=== PATIENT | female | born 2000 | race Caucasian/White ===

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

== ENCOUNTER → 2018-01-14 13:06 | Outpatient (CLI) | payer SELFPAY | PROVIDERS: Visit Provider Nurse Practitioner Obstetrics & Gynecology | DX: N92.0 Excessive and frequent menstruation with regular cycle (principal) | CPT/HCPCS: 86316 ==

== ENCOUNTER → 2019-12-28 14:26 | Outpatient (CLI) | payer OTHER, SELFPAY ==
--- NOTE | 2019-12-28 14:34 | XR_ITS ---
PROCEDURE: XR CHEST PORTABLE CLINICAL HISTORY: COVID TEST COMPARISON: CR CXR CHEST(2 VIEWS-NOT PORTABLE) from 12/24/[address] angio chest from 06/24/2017 FINDINGS: The cardiomediastinal silhouette and pulmonary vascularity are within normal limits. The lungs are clear without infiltrates, suspicious nodules, or pleural effusions. No acute bony abnormalities. IMPRESSION: No acute findings. Dictated by: Sharif Pepe MD 12/28/2019 16:42 Sharif Pepe MD in [place] 12/28/2019 16:42
[2019-12-28 15:26] LABS: Basophils % 0.4 % (0.1-2.0); Eosinophils # 0.1 K/mm3 (0.0-0.4); Eosinophils % 0.9 % (0.1-12.0); Hematocrit 41.5 % (37.0-47.0); Hemoglobin 13.5 g/dL (12.2-16.2); Lymphocytes # 1.3 K/mm3 (0.7-4.5); Lymphocytes % 22.3 % (10-50); Mean Corpuscular HGB Conc 32.4 g/dL (31.8-35.4); Mean Corpuscular Volume 95.7 fl (81-99); Monocytes # 0.4 K/mm3 (0.1-1.0); Monocytes % 6.9 % (1.7-9.3); Neutrophils # 4.2 K/mm3 (1.8-7.8); Neutrophils % 69.5 % (37.0-80.0); Platelet Count 184 K/mm3 (142-424); Red Blood Count 4.34 M/mm3 (4.20-5.40); Red Cell Distribution Width 12.4 % (11.5-17.5)
[2019-12-28 16:35] LABS: Alanine Aminotransferase 18 U/L (12-78); Albumin Level 4.3 g/dl (3.5-5.0); Albumin/Globulin Ratio 1.3 (1.1-1.8); Alkaline Phosphatase 70 U/L (38-126); Anion Gap 13.1 mEq/L (5-15); Aspartate Amino Transferase 26 U/L (14-36); Bilirubin,Total 0.3 mg/dl (0.2-1.3); Blood Urea Nitrogen 13 mg/dl (7-17); Carbon Dioxide 23 mmol/L (22.0-30.0); Chloride 106 mmol/L (98-107); Estimated Glomerular Filt Rate 91 ml/min (>60); GFR (African American) 110 ML/MIN (>60); Globulin 3.2 g/dL (1.3-3.2); Glucose 98 mg/dl (74-100); Potassium 4.1 mmoL/L (3.5-5.1); Sodium 138 mmol/L (136-145); Total Protein,Serum 7.5 g/dl (6.3-8.2)
[2019-12-28 16:36] LABS: Coronavirus 19 IgG Antibody Negative (Negative); Coronavirus 19 IgM Antibody Negative (Negative)
[2019-12-28 16:40] LABS: C-Reactive Protein 5.5 mg/L (0-4)
== END ==
PROVIDERS: PCP Internal Medicine Adolescent Medicine; Visit Provider Internal Medicine Adolescent Medicine
DX: Z20.828 Contact with and (suspected) exposure to other viral communicable diseases (principal); U07.1 COVID-19; R05 Cough; M79.10 Myalgia, unspecified site
CPT/HCPCS: 36415; 71045; 80053; 85025; 86140; 86328; U0003

== ENCOUNTER 2020-05-16 10:26 | Emergency (ER) | payer OTHER, SELFPAY ==
[2020-05-16 10:40] VITALS: BP 154/83; PULSE 120; RESP 16; TEMP 36.9; O2SAT 99; BMI 31.2
[2020-05-16 10:51] VITALS: BP 150/79; PULSE 122; RESP 16; TEMP 36.8
--- NOTE | 2020-05-16 10:51 | HMH.EDUTC ---
[facility] [place] Clinical Impression: Right sided abdominal pain Disposition: Home, Self-Care Condition on Discharge: Good Additional Instructions: Go straight to your Family Doctor office we have spoken with them and they are expecting you Return if needed Straight to ER if any life threatening symptoms Further treatment to be given by Family Doctor Referrals: Stephen Hardin MD [Primary Care Provider] - As needed (Go straight to the office after leaving [facility]) Time of Disposition: 10:54 Medical Decision Making - Pietro Inquiry Pt receiving controlled substance: No Pietro was queried for this patient: No Vital Signs: 05/16/20 10:40 05/16/20 10:51 Temperature 98.4 F 98.3 F Temperature Source Oral Pulse Rate 122 H Pulse Rate [Right] 120 H Respiratory Rate 16 16 Blood Pressure 150/79 H Blood Pressure [Right Arm] 154/83 H Blood Pressure Mean [Right Arm] 106 Blood Pressure Source [Right Arm] Automatic Cuff Blood Pressure Position Sitting Blood Pressure Position [Right Arm] Sitting 02 Sat by Pulse Oximetry 99 Oxygen Delivery Method Room Air - Lab Data Lab results reviewed: Yes: I reviewed the patient's lab results. Lab Results 05/16/20 10:43: Urine Color Yellow, Urine Appearance Clear, Urine pH 7.0, Ur Specific [place] 1.025, Urine Protein Negative, Urine Glucose (UA) Negative, Urine Ketones Negative, Urine Blood Trace, Urine Nitrate Negative, Urine Bilirubin Negative, Urine Urobilinogen 0.2, Ur Leukocyte Esterase Trace, Tst Clinic Negative Orders (Tests/Meds): ORDERS Category Date Time Status Urine Culture Stat Micro 05/16/20 11:02 Ordered Medical Decision Narrative: Patient reports having pain in her right side of abdomen that shoots up into her back States that she called her PCP this morning and left a message and they called her back but she missed the call so she came here States that pain in right side has been going on for several days and she has nausea after eating States that she feels like her sweat smells funny like onions States that when pain hits she gets sweaty Patient had appendix removed years ago Discussed with patient about and recommended transfer to ED due to having right sided abdominal pain for further work up and testing and patient states that she would like to see PCP instead of ED transfer if possible. called office and spoke with staff and informed them of patient complaints and they advised to have her come on into the office they would see her there. Discussed with patient and she agreed to go straight to the office and again recommended transfer to ED and patient preferred to go to her PCP instead of being transferred to Ed for further treatment Patient discharged from [facility] and advised to go straight to her PCP [facility] [place] - General Stated complaint: Rt side pain, bad taste/smell Time Seen by Provider: 05/16/20 10:52 Mode of Arrival: Ambulatory Source of Information: Patient Limitations: No Limitations Description of Symptoms (Recalled from Triage Doc. by RN): pt is complain of RLQ pain that radiates into the right side of her back. she has had n/v. pt has been dizzy. pt reports that when she eats everything tastes like rotten onions she also states her sweat smells like rotten onions. abd pain worse with eating. HEENT Symptoms (Recalled from RN notes): Yes (dizziness. syncope yesterday at work.) Resp Symptoms (Recalled from RN notes): No Skin Symptoms (Recalled from RN notes): No MS Symptoms (Recalled from RN notes): No Functional Status (Recalled from RN notes): na - History of Present Illness Provider Complaint: Patient states that she has been having pain in her right side of abdomen that at times shoots pain into her back States that pain is worse at times after she eats States that she feels like at times her food and sweat tastes and smells like rotten onions States that when pain hits it makes her feel sweaty. States that she had appendix remov
[2020-05-16 10:52] LABS: Apearance,Urine Clear (Clear); Blood, Urine Trace (Negative); Color,Urine Yellow (Yellow); Glucose,Urine (UA) Negative (Negative); Ketones,Urine Negative (Negative); Protein,Urine Negative (Negative); Specific Gravity, Urine 1.025 (1.005-1.030)
[2020-05-16 10:53] LABS: Bilirubin,Urine Negative (Negative); UTC Leukocyte Esterase,Urine Trace (Negative); UTC Nitrate,Urine Negative (Negative); UTC Pregnancy Test, Urine Negative (Negative); Urobilinogen,Urine 0.2 EU/dl (0.2)
== END 2020-05-16 10:57 | disposition home or self-care (01) ==
PROVIDERS: Emergency Provider Nurse Practitioner; PCP Internal Medicine Adolescent Medicine
DX: R10.31 Right lower quadrant pain (principal); R11.2 Nausea with vomiting, unspecified; R42 Dizziness and giddiness; F17.210 Nicotine dependence, cigarettes, uncomplicated
CPT/HCPCS: 81003; 81025; 87086; 99202; G0463

== ENCOUNTER → 2020-05-16 11:47 | Outpatient (CLI) | payer OTHER, SELFPAY ==
[2020-05-16 12:27] LABS: Basophils % 0.3 % (0.1-2.0); Eosinophils # 0.2 K/mm3 (0.0-0.4); Eosinophils % 1.5 % (0.1-12.0); Hematocrit 43.1 % (37.0-47.0); Hemoglobin 14.2 g/dL (12.2-16.2); Lymphocytes # 2.4 K/mm3 (0.7-4.5); Lymphocytes % 23.1 % (10-50); Mean Platelet Volume 7.8 fl (7.4-10.4); Monocytes # 0.4 K/mm3 (0.1-1.0); Monocytes % 3.9 % (1.7-9.3); Neutrophils # 7.3 K/mm3 (1.8-7.8); Neutrophils % 71.2 % (37.0-80.0); Platelet Count 222 K/mm3 (142-424); Red Blood Count 4.59 M/mm3 (4.20-5.40); Red Cell Distribution Width 12.6 % (11.5-17.5); White Blood Count 10.3 K/mm3 (4.8-10.8)
[2020-05-16 13:29] LABS: Alanine Aminotransferase 12 U/L (12-78); Albumin Level 4.6 g/dl (3.5-5.0); Albumin/Globulin Ratio 1.3 (1.1-1.8); Alkaline Phosphatase 73 U/L (38-126); Anion Gap 11.2 mEq/L (5-15); Aspartate Amino Transferase 22 U/L (14-36); Bilirubin,Total 0.4 mg/dl (0.2-1.3); Blood Urea Nitrogen 15 mg/dl (7-17); Calcium 9.7 mg/dl (8.4-10.2); Carbon Dioxide 24 mmol/L (22.0-30.0); Chloride 107 mmol/L (98-107); Estimated Glomerular Filt Rate 105 ml/min (>60); GFR (African American) 127 ML/MIN (>60); Globulin 3.5 g/dL (1.3-3.2); Glucose 88 mg/dl (74-100); Lipase 25 U/L (23-300); Potassium 4.2 mmoL/L (3.5-5.1); Sodium 138 mmol/L (136-145); Total Protein,Serum 8.1 g/dl (6.3-8.2)
== END ==
PROVIDERS: Visit Provider Internal Medicine Adolescent Medicine
DX: R10.11 Right upper quadrant pain (principal)
CPT/HCPCS: 36415; 80053; 83690; 85025

== ENCOUNTER → 2020-05-19 08:46 | Outpatient (CLI) | payer OTHER, SELFPAY ==
--- NOTE | 2020-05-19 08:50 | US_ITS ---
PROCEDURE: US ABDOMEN LIMITED CLINICAL INDICATION: RUQ PAIN COMPARISON: No exams were available for comparison FINDINGS: PANCREAS: Unremarkable. No obvious mass or abnormal fluid collection. No ductal dilatation LIVER: No focal liver lesions demonstrated. Homogeneous echogenicity. No intrahepatic biliary ductal dilatation evident. There is appropriate direction of blood flow within a non dilated portal vein RIGHT KIDNEY: Unremarkable. Normal size and echogenicity. No hydronephrosis GALLBLADDER: No gallstones, gallbladder wall thickening, pericholecystic fluid, or biliary dilatation. IMPRESSION: Unremarkable limited abdominal ultrasound as detailed above disc Dictated by: Sharif Pepe MD 05/19/2020 11:11 Sharif Pepe MD in [place] 05/19/2020 11:11
== END ==
PROVIDERS: PCP Internal Medicine Adolescent Medicine; Visit Provider Internal Medicine Adolescent Medicine
DX: R10.11 Right upper quadrant pain (principal)
CPT/HCPCS: 76705

== ENCOUNTER 2020-06-28 13:18 | Emergency (ER) | payer OTHER, SELFPAY ==
[2020-06-28 13:20] VITALS: BP 117/78; PULSE 89; RESP 18; TEMP 37; O2SAT 97; BMI 33.2
--- NOTE | 2020-06-28 13:59 | HMH.EDUTC ---
[facility] [place]ression: Swelling of left hand, Sting Cellulitis Qualifiers: Site of cellulitis: extremity Site of cellulitis of extremity: upper extremity Laterality: left Qualified Code(s): L03.114 - Cellulitis of left upper limb Disposition: Home, Self-Care Condition on Discharge: Good Instructions: Cellulitis, Insect Bites and Stings Additional Instructions: Avoid contact with the offending substance. Don't put the topical steroids (triamcinolone) on your face or your groin. Follow up with your regular doctor. GO TO THE ER FOR ANY WORSENING SYMPTOMS OR CONCERNS Prescriptions: Sulfamethoxazole/Trimethoprim [Bactrim DS tablet] 1 each PO BID 7 Days #14 tab Transmission Status: Received by [facility] methylPREDNISolone [Medrol] 4 mg PO DIRECTED 6 Days #21 tab.[email or web address] Transmission Status: Received by [facility] Triamcinolone Acetonide 1 applicatio TP TIDP PRN 7 Days #1 tube PRN Reason: Itching Transmission Status: Received by [facility] Referrals: Stephen Hardin MD [Primary Care Provider] - Forms: Work/School Release Time of Disposition: 14:04 Medical Decision Making - Medical Records Medical records reviewed: No: I reviewed the patient's medical records. - Pietro Inquiry Pt receiving controlled substance: No Vital Signs: 06/28/20 13:20 06/28/20 14:08 Temperature 98.6 F 98.6 F Temperature Source Oral Pulse Rate 89 Pulse Rate [Right Brachial] 89 Respiratory Rate 18 18 Blood Pressure 117/78 Blood Pressure [Right Arm] 117/78 Blood Pressure Mean [Right Arm] 91 Blood Pressure Source [Right Arm] Automatic Cuff Blood Pressure Position [Right Arm] Sitting 02 Sat by Pulse Oximetry 97 Oxygen Delivery Method Room Air [facility] [place] - General Stated complaint: left hand swelling Time Seen by Provider: 06/28/20 13:59 Mode of Arrival: Ambulatory Source of Information: Patient Limitations: No Limitations Description of Symptoms (Recalled from Triage Doc. by RN): PATIENT C/O SWELLING, REDNESS, AND BURNING TO LEFT HAND. SHE STATES IT STARTED AFTER SHE ATE LUNCH AND WASHED HER HANDS. ALSO REPORTS NUMBNESS TO AREA AFTER SHE RUBBED IT WITH ALCOHOL HEENT Symptoms (Recalled from RN notes): No Resp Symptoms (Recalled from RN notes): No Skin Symptoms (Recalled from RN notes): Yes MS Symptoms (Recalled from RN notes): No Functional Status (Recalled from RN notes): WNL - History of Present Illness Provider Complaint: She states that for the past 2 hours, her left hand had been swollen and she has had a red area on her top of her left hand. She denies any known injury. She was at work when she first noticed the swelling. - Related Data Home Medications Medication Instructions Recorded Confirmed albuterol sulfate 90 mcg/actuation INHALATION 01/11/20 04/12/20 aerosol inhaler loratadine 10 mg tablet 10 mg PO tab 01/11/20 04/12/20 Previous Rx's Medication Instructions Recorded escitalopram oxalate 10 mg tablet 10 mg PO DAILY #30 tab 09/13/19 medroxyprogesterone 150 mg/mL 150 mg IM [id number] #1 ml 10/11/19 intramuscular suspension ondansetron 4 mg disintegrating 4 mg PO Q8H PRN #30 tab 04/12/20 tablet Sulfamethoxazole/Trimethoprim 1 each PO BID 7 Days #14 tab 06/28/20 [Bactrim DS tablet] Triamcinolone Acetonide 1 applicatio TP TIDP PRN 7 Days #1 06/28/20 tube methylPREDNISolone [Medrol] 4 mg PO DIRECTED 6 Days #21 06/28/20 tab.[email or web address] Allergies Allergy/AdvReac Type Severity Reaction Status Date / Time No Known Allergies Allergy Verified 05/16/20 10:30 - Worker's Comp Is this a Worker's Comp case?: No H History - Hepatitis A Screen Drug use history?: No High risk sexual behaviors?: No History of sexually transmitted infection?: No Currently employed?: No Childcare worker?: No Do you have indoor plumbing?: Yes Do you have electricity?: Yes Attestation statement:: This patient has been screened for Hepatitis
[2020-06-28 14:08] VITALS: BP 117/78; PULSE 89; RESP 18; TEMP 37; O2SAT 97
== END 2020-06-28 14:25 | disposition home or self-care (01) ==
PROVIDERS: Emergency Provider Nurse Practitioner Family; PCP Internal Medicine Adolescent Medicine
DX: L03.114 Cellulitis of left upper limb (principal); R01.1 Cardiac murmur, unspecified; F33.1 Major depressive disorder, recurrent, moderate; F17.210 Nicotine dependence, cigarettes, uncomplicated; Z79.899 Other long term (current) drug therapy
CPT/HCPCS: 99202; G0463

== ENCOUNTER → 2020-08-16 13:05 | Outpatient (CLI) | payer OTHER, SELFPAY ==
[2020-08-16 13:07] LABS: Microscopic, Urine URINE MICROSCOPIC (MICROSCOPIC)
[2020-08-16 13:37] LABS: Basophils % 0.2 % (0.1-2.0); Eosinophils # 0.1 K/mm3 (0.0-0.4); Eosinophils % 1.4 % (0.1-12.0); Hematocrit 38.9 % (37.0-47.0); Hemoglobin 13.1 g/dL (12.2-16.2); Lymphocytes # 2.6 K/mm3 (0.7-4.5); Lymphocytes % 25.9 % (10-50); Mean Corpuscular HGB Conc 33.7 g/dL (31.8-35.4); Mean Corpuscular Hemoglobin 31.5 pg (27.0-31.2); Mean Corpuscular Volume 93.4 fl (81-99); Mean Platelet Volume 8.3 fl (7.4-10.4); Monocytes # 0.4 K/mm3 (0.1-1.0); Monocytes % 4.3 % (1.7-9.3); Neutrophils # 6.9 K/mm3 (1.8-7.8); Neutrophils % 68.1 % (37.0-80.0); Platelet Count 255 K/mm3 (142-424); Red Blood Count 4.17 M/mm3 (4.20-5.40); Red Cell Distribution Width 12.4 % (11.5-17.5); White Blood Count 10.1 K/mm3 (4.8-10.8)
[2020-08-16 13:39] LABS: Appearance,Urine CLEAR (Clear); Bilirubin,Urine Negative (Negative); Blood, Urine 3+ (Negative); Color,Urine YELLOW (Yellow); Glucose,Urine (UA) Negative (Negative); Ketones,Urine Negative (Negative); Leukocyte Esterase,Urine Negative (Negative); Nitrate,Urine Negative (Negative); Protein,Urine Negative (Negative); Specific Gravity, Urine >= 1.030 (1.005-1.030); Urobilinogen,Urine 0.2 EU/dl (0.2)
[2020-08-16 13:49] LABS: Bacteria,Urine 3+ /lpf; Mucus,Urine 3+ /lpf
[2020-08-16 14:21] LABS: Alanine Aminotransferase 16 U/L (12-78); Albumin Level 4.5 g/dl (3.5-5.0); Albumin/Globulin Ratio 1.5 (1.1-1.8); Alkaline Phosphatase 84 U/L (38-126); Anion Gap 12.4 mEq/L (5-15); Aspartate Amino Transferase 25 U/L (14-36); Bilirubin,Total 0.4 mg/dl (0.2-1.3); Blood Urea Nitrogen 16 mg/dl (7-17); Calcium 9.3 mg/dl (8.4-10.2); Carbon Dioxide 24 mmol/L (22.0-30.0); Chloride 107 mmol/L (98-107); Estimated Glomerular Filt Rate 105 ml/min (>60); GFR (African American) 127 ML/MIN (>60); Globulin 3.1 g/dL (1.3-3.2); Glucose 80 mg/dl (74-100); Potassium 4.4 mmoL/L (3.5-5.1); Sodium 139 mmol/L (136-145); Total Protein,Serum 7.6 g/dl (6.3-8.2)
[2020-08-16 14:23] LABS: HCG Qualitative, Serum Negative (Negative)
== END ==
PROVIDERS: Visit Provider Internal Medicine Adolescent Medicine
DX: N92.1 Excessive and frequent menstruation with irregular cycle (principal); K92.1 Melena; R31.9 Hematuria, unspecified
CPT/HCPCS: 36415; 80053; 81001; 84703; 85025; 87086; 87088; 87186

== ENCOUNTER → 2020-10-16 16:42 | Outpatient (CLI) | payer OTHER, SELFPAY ==
[2020-10-16 16:43] LABS: Microscopic, Urine URINE MICROSCOPIC (MICROSCOPIC)
[2020-10-16 17:50] LABS: Appearance,Urine CLOUDY (Clear); Bilirubin,Urine Negative (Negative); Blood, Urine TRACE-I (Negative); Color,Urine YELLOW (Yellow); Glucose,Urine (UA) Negative (Negative); Ketones,Urine Negative (Negative); Leukocyte Esterase,Urine Negative (Negative); Nitrate,Urine Negative (Negative); Protein,Urine Negative (Negative); Specific Gravity, Urine >= 1.030 (1.005-1.030); Urobilinogen,Urine 0.2 EU/dl (0.2)
[2020-10-16 18:35] LABS: Squamous Epithelial Cell,Urine Occasional #/hpf (0-5); WBC,Urine Occasional #/hpf (0-3)
== END ==
PROVIDERS: Visit Provider Internal Medicine Adolescent Medicine
DX: R10.30 Lower abdominal pain, unspecified (principal)
CPT/HCPCS: 81001; 87086; 87088; 87186

== ENCOUNTER 2020-11-14 12:55 | Emergency (ER) | payer OTHER, SELFPAY ==
[2020-11-14 12:59] VITALS: BP 129/77; PULSE 77; RESP 16; TEMP 36.8; O2SAT 100; BMI 32.3
--- NOTE | 2020-11-14 15:04 | ED_ITS ---
[facility] – [place] Disposition Referrals: Stephen Hardin MD [Primary Care Provider] - Medical Decision Making Vital Signs: 11/14/20 12:59 Temperature 98.2 F Temperature Source Oral Pulse Rate [Right] 77 Respiratory Rate 16 Blood Pressure [Right Arm] 129/77 Blood Pressure Mean [Right Arm] 94 Blood Pressure Source [Right Arm] Automatic Cuff Blood Pressure Position [Right Arm] Sitting 02 Sat by Pulse Oximetry 100 Oxygen Delivery Method Room Air [facility] [place] HPI - General Stated complaint: right arm pain, down to fingers Mode of Arrival: Ambulatory Source of Information: Patient Limitations: No Limitations Description of Symptoms (Recalled from Triage Doc. by RN): PT ADVISES SHE WORKS IN A [employer] AND DOES REPEATIVE MOTIONS WITH HER HAND. ON FRIDAY MORNING SHE WOKE UP WITH PAIN IN THE RIGHT HSOULDER DOWN TO HER FINGERS. ADVISES THERE IS SOME TINGLING AND NUMBNESS IN HER HAND AND THAT WHEN SHE MOVES HER ELBOW SHE FEELS LIKE THERE IS ELECTRICITY GOING DOWN HER ARM. - Related Data Home Medications Medication Instructions Recorded Confirmed albuterol sulfate 90 mcg/actuation INHALATION 01/11/20 04/12/20 aerosol inhaler loratadine 10 mg tablet 10 mg PO tab 01/11/20 04/12/20 Previous Rx's Medication Instructions Recorded escitalopram oxalate 10 mg tablet 10 mg PO DAILY #30 tab 09/13/19 medroxyprogesterone 150 mg/mL 150 mg IM [id number] #1 ml 10/11/19 intramuscular suspension ondansetron 4 mg disintegrating 4 mg PO Q8H PRN #30 tab 04/12/20 tablet Sulfamethoxazole/Trimethoprim 1 each PO BID 7 Days #14 tab 06/28/20 [Bactrim DS tablet] Triamcinolone Acetonide 1 applicatio TP TIDP PRN 7 Days #1 06/28/20 tube methylPREDNISolone [Medrol] 4 mg PO DIRECTED 6 Days #21 06/28/20 tab.ds.pk Allergies Allergy/AdvReac Type Severity Reaction Status Date / Time No Known Allergies Allergy Verified 05/16/20 10:30 [facility] History - Hepatitis A Screen Attestation statement:: This patient has been screened for Hepatitis A risk factors. Medical History: Reports:: Heart Murmur Denies:: Cancer, Diabetes Mellitus Type 1, Diabetes Mellitus Type 2, Hypertension, Internal Pacemaker, MRSA, Seizures Other Medical History: Reports: Other. Denies: Blood Transfusion Reaction Other Surgeries: Yes: No Previous Surgery, Appendectomy, Other. 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
[2020-11-14 15:54] VITALS: BP 00/00; PULSE 0; RESP 0; TEMP -17.7; TEMP 0
== END 2020-11-14 15:56 | disposition left against medical advice (07) ==
LOC: UTC 13:01
PROVIDERS: Emergency Provider Nurse Practitioner; PCP Internal Medicine Adolescent Medicine
DX: Z53.21 Procedure and treatment not carried out due to patient leaving prior to being seen by health care provider (principal)

== ENCOUNTER → 2020-11-28 11:41 | Outpatient (CLI) | payer OTHER, SELFPAY ==
[2020-11-28 12:24] LABS: Basophils % 0.4 % (0.1-2.0); Eosinophils % 0.5 % (0.1-12.0); Hematocrit 41.9 % (37.0-47.0); Hemoglobin 13.8 g/dL (12.2-16.2); Lymphocytes # 1.3 K/mm3 (0.7-4.5); Lymphocytes % 16.5 % (10-50); Mean Corpuscular HGB Conc 32.9 g/dL (31.8-35.4); Mean Corpuscular Hemoglobin 31.6 pg (27.0-31.2); Mean Corpuscular Volume 96.1 fl (81-99); Mean Platelet Volume 7.9 fl (7.4-10.4); Monocytes # 0.4 K/mm3 (0.1-1.0); Monocytes % 4.8 % (1.7-9.3); Neutrophils # 6.2 K/mm3 (1.8-7.8); Neutrophils % 77.9 % (37.0-80.0); Platelet Count 211 K/mm3 (142-424); Red Blood Count 4.36 M/mm3 (4.20-5.40); Red Cell Distribution Width 12.1 % (11.5-17.5)
[2020-11-28 13:32] LABS: Chloride 105 mmol/L (98-107); Potassium 4.3 mmoL/L (3.5-5.1); Sodium 139 mmol/L (136-145)
[2020-11-28 13:34] LABS: Alanine Aminotransferase 14 U/L (12-78); Alkaline Phosphatase 96 U/L (38-126); Aspartate Amino Transferase 24 U/L (14-36); Bilirubin,Total 0.2 mg/dl (0.2-1.3); Blood Urea Nitrogen 13 mg/dl (7-17); Estimated Glomerular Filt Rate 105 ml/min (>60); GFR (African American) 127 ML/MIN (>60)
[2020-11-28 13:35] LABS: Albumin Level 4.4 g/dl (3.5-5.0); Albumin/Globulin Ratio 1.3 (1.1-1.8); Anion Gap 15.3 mEq/L (5-15); Calcium 9.4 mg/dl (8.4-10.2); Carbon Dioxide 23 mmol/L (22.0-30.0); Globulin 3.3 g/dL (1.3-3.2); Glucose 92 mg/dl (74-100); Total Protein,Serum 7.7 g/dl (6.3-8.2)
[2020-11-28 13:57] LABS: HCG,Quantitative < 2 mIU/ml (0-5.42)
== END ==
PROVIDERS: Visit Provider Internal Medicine Adolescent Medicine
DX: N93.9 Abnormal uterine and vaginal bleeding, unspecified (principal)
CPT/HCPCS: 36415; 80053; 84702; 85025

== ENCOUNTER → 2020-11-29 19:49 | Outpatient (CLI) | payer OTHER, SELFPAY | PROVIDERS: Visit Provider Nurse Practitioner Family | DX: R50.9 Fever, unspecified (principal) | CPT/HCPCS: 87086 ==

== ENCOUNTER → 2021-05-29 07:03 | Outpatient (CLI) | payer OTHER, SELFPAY ==
[2021-05-29 07:08] LABS: MANUAL DIFFERENTIAL MANUAL DIFFERENTIAL (MANUAL DIFF)
[2021-05-29 07:35] LABS: Basophils # 0.1 K/mm3 (0-0.2); Basophils % 0.7 % (0.1-2.0); Eosinophils # 0.1 K/mm3 (0.0-0.4); Eosinophils % 1.6 % (0.1-12.0); Hematocrit 42.3 % (37.0-47.0); Hemoglobin 13.6 g/dL (12.2-16.2); Lymphocytes # 1.8 K/mm3 (0.7-4.5); Lymphocytes % 21.8 % (10-50); Mean Corpuscular HGB Conc 32.1 g/dL (31.8-35.4); Mean Corpuscular Hemoglobin 31.6 pg (27.0-31.2); Mean Corpuscular Volume 98.3 fl (81-99); Mean Platelet Volume 8.6 fl (7.4-10.4); Monocytes # 0.3 K/mm3 (0.1-1.0); Neutrophils % 71.9 % (37.0-80.0); Platelet Count 213 K/mm3 (142-424); Red Cell Distribution Width 13.4 % (11.5-17.5); White Blood Count 8.3 K/mm3 (4.8-10.8)
[2021-05-29 08:30] LABS: Anion Gap 10.7 mEq/L (5-15); Blood Urea Nitrogen 18 mg/dl (7-17); Calcium 8.7 mg/dl (8.4-10.2); Carbon Dioxide 24 mmol/L (22.0-30.0); Chloride 108 mmol/L (98-107); Estimated Glomerular Filt Rate 69 ml/min (>60); GFR (African American) 83 ML/MIN (>60); Glucose 80 mg/dl (74-100); Potassium 4.7 mmoL/L (3.5-5.1); Sodium 138 mmol/L (136-145)
[2021-05-29 08:39] LABS: HCG Qualitative, Serum Negative (Negative)
[2021-05-29 14:22] LABS: Eosinophils % 2 % (0-3); Lymphocytes % 23 % (10-50); Monocytes % 4 % (2-9); Neutrophils % 71 % (42-76); Total Cells Counted 100
[2021-05-29 14:23] LABS: Platelet Estimate Normal
== END ==
PROVIDERS: Visit Provider Nurse Practitioner Obstetrics & Gynecology
DX: Z01.818 Encounter for other preprocedural examination (principal); Z11.52 Encounter for screening for COVID-19; Z30.09 Encounter for other general counseling and advice on contraception
CPT/HCPCS: 36415; 80048; 84703; 85007; 85014; 85018; 85048; 85049; C9803; U0003; U0005

== ENCOUNTER 2021-05-31 06:00 | Day surgery (SDC) | payer OTHER, SELFPAY ==
[2021-05-29 12:40] VITALS: BMI 30.7
[2021-05-31] VITALS (11 sets, daily range): BP systolic 113–140; BP diastolic 58–90; PULSE 72–100; RESP 14–18; TEMP 36.4–36.9; O2SAT 98–100
--- NOTE | 2021-05-31 07:22 | HMH.ANESCL ---
[facility] Anesthesia Checklist - Patient Identification Patient Identification: Arm Band - Structural Data Admitted From: Home Planned Operative Procedure/s: Harpreet. salpingectomy Consent for Planned Operative Procedure(s) Verified: Yes - NPO Status Verified Time NPO: 00:00 - Additional verifications Anesthesia Reactions: No Hx Blood Transfusions: No Blood Transfusion Reaction: No - Airway Assessment C-Spine Mobility Assessed: Yes TMJ Mobility Assessed: Yes Dentition: Good Dentition - Neurological Assessment Level of Consciousness: Awake Hx Seizures: No Numbness or tingling in extremities: No - Anesthesia Plan Anesthesia Risk discussed: Yes Anesthesia Plan: Verified ASA Class: II Anesthesia Type: General [facility] History I have reviewed the patient's past medical history: Yes Medical History: Reports:: Heart Murmur Denies:: Cancer, Diabetes Mellitus Type 1, Diabetes Mellitus Type 2, Hypertension, Internal Pacemaker, MRSA, Seizures *Have you ever received a pneumonia vaccine?: No *Have you received a flu vaccine this season?: No Other Medical History: Reports: Other. Denies: Blood Transfusion Reaction Anesthesia experience/problems:: None Other Surgeries: Yes: No Previous Surgery, Appendectomy, Other. 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
--- NOTE | 2021-05-31 08:15 | P.OP_ITS ---
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 She expressed desire for sterilization. The risks and benefits as well as the irreversibility of sterilization were discussed with the patient prior to surgery. Operative findings:: She had a normal-appearing anteverted uterus. The left tube and ovary were absent. The right tube was followed to its fimbriated end and appeared normal. There were a couple of small adhesions in the deep pelvis. There were some adhesions from the right tube to the right ovary. There were just filmy adhesions. The upper abdomen appeared normal except that there were filmy adhesions of the liver to the anterior abdominal wall. She had had previous PID. Operative note:: She was taken to the operating room where general anesthesia was found be adequate. She was prepped and draped in normal sterile fashion in the semilithotomy position. A weighted speculum was placed in the vagina and the anterior lip of the cervix was grasped with a tenaculum. I then inserted a Deepali uterine manipulator into the cervical os. The balloon was then insufflated. I changed gloves and injected 10 cc of 0.5% ropivacaine around her umbilicus and made a small incision within the umbilicus. I inserted a Veress needle into the abdominal cavity. The peritoneal cavity was then insufflated with carbon dioxide gas to a pressure of 20 mmHg. I then inserted a 5 millimeter trocar under direct vision. I injected through and through the pubic hairline, made a small incision here and inserted an 8 mm trocar under direct vision. I identified the inferior epigastric artery on the left side, went lateral to these and injected through and through. I then placed a 5 mm trocar here under direct vision. The pelvis and upper abdomen were then inspected and the findings were as previously dictated. I grasped the right tube at the cornua and using harmonic scalpel on coagulation mode I cut through the tube. I then grasped the distal tube and using harmonic scalpel cut along the mesosalpinx. The tube was removed through 8 mm trocar site. I then injected 30 cc of 0.5% ropivacaine into the pelvis. After assuring hemostasis the gas was let out of the abdomen and hemostasis was once again assured. The abdomen was then reinsufflated. The secondary trochars were removed under direct vision. The gas was let out her abdomen. The primary trocar was then removed. The 8 mm trocar site was closed deeply with 2-0 Vicryl suture followed by subcuticular 4-0 Monocryl suture. The 5 mm trocar sites were closed with subcuticular 4-0 Monocryl. Sterile dressings were applied. The patient tolerated the procedure well and was taken to the recovery room in excellent condition. All sponge instrument and needle counts were correct. The estimated blood loss was less than 25 cc. Condition: stable Disposition: PACU Specimens:: Right Fallopian tube Complications:: None
--- NOTE | 2021-05-31 08:16 | P.PN_ITS ---
[facility] Anesthesia Record Part I Intake, IV Amount: 500 Estimated blood loss (mL): 25 Urine output (mL): 0 Blood Pressure: 140/87 SaO2: 100 Pulse Rate: 100 Respiratory Rate: 18 Temperature: 97.7 F Patient is:: Drowsy Stable to PACU at:: 08:14
--- NOTE | 2021-05-31 08:46 | SUR.PHASEI ---
0843- detailed report called to markell gerardo in post op at this time. 0945- pt taken to post op in stable condition by markell gerardo.
--- NOTE | 2021-05-31 13:27 | P.PN_ITS ---
[facility] Anesthesia Record Part II Discharge Time: 08:44 Destination: Surgical Day Care (OP Surgery) PACU nurse assessment reviewed?: Yes Patient Condition:: Good Anesthesia Complications:: None Swallowing reflex intact?: Yes Cyanosis?: No Blood Pressure: 136/87 Pulse Rate: 72 Temperature: 97.6 F Mental Status: Alert & Oriented Pain level:: 2 Nausea and/or vomitting:: None Intake, IV Amount: 0
== END 2021-05-31 09:30 | disposition home or self-care (01) ==
LOC: OR 06:01
PROVIDERS: PCP Internal Medicine Adolescent Medicine; Visit Provider Nurse Practitioner Obstetrics & Gynecology
PROC: (CPT 58661; principal; 2021-05-31 07:30)
DX: Z30.2 Encounter for sterilization (principal); K66.0 Peritoneal adhesions (postprocedural) (postinfection); R01.1 Cardiac murmur, unspecified; Z72.0 Tobacco use
CPT/HCPCS: 58661; 96374; J2405

== ENCOUNTER 2021-09-08 09:29 | Emergency (ER) | payer OTHER, SELFPAY ==
[2021-09-08 10:05] VITALS: BP 118/77; PULSE 83; RESP 18; TEMP 36.6; O2SAT 98; BMI 35.1
--- NOTE | 2021-09-08 10:28 | HMH.EDUTC ---
[facility] [place] Dis[place] Clinical Impression: Otitis media Qualifiers: Otitis media type: suppurative Chronicity: acute Laterality: right Recurrence: non-recurrent Spontaneous tympanic membrane rupture: without spontaneous rupture Qualified Code(s): H66.001 - Acute suppurative otitis media without spontaneous rupture of ear drum, right ear Disposition: Home, Self-Care Condition on Discharge: Good Instructions: Middle Ear Infection Additional Instructions: Start antibiotic as soon as possible and be sure to take as ordered for full length of time even though he should start feeling better in 24-48 hours. Tylenol or Motrin as needed for pain or fever Encourage fluids, water, Gatorade, Powerade, Pedialyte if /toddler/child Warm compresses often helps when placed over ear Return immediately for new or worsening symptoms no noticeable improvement in 48-72 hours and in 10-14 days to ensure the ears are return to baseline. Follow-up with primary care Prescriptions: cephALEXin [Cephalexin 500mg Tab] 500 mg PO BID 7 Days #14 tab Prescription Printed Referrals: Stephen Hardin MD [Primary Care Provider] - Time of Disposition: 10:45 Medical Decision Making - Pietro Inquiry Pt receiving controlled substance: No Vital Signs: 09/08/21 10:05 Temperature 97.8 F Temperature Source Oral Pulse Rate [Left Brachial] 83 Respiratory Rate 18 Blood Pressure [Left Arm] 118/77 Blood Pressure Mean [Left Arm] 90 Blood Pressure Source [Left Arm] Automatic Cuff Blood Pressure Position [Left Arm] Sitting 02 Sat by Pulse Oximetry 98 Oxygen Delivery Method Room Air Orders (Tests/Meds): ORDERS Category Date Time Status Upper Respiratory Panel, PCR Stat Lab 09/08/21 10:22 Ordered [facility] [place] HPI - General Chief complaint: Urgent [facility] Stated complaint: ear pain,cough,abd pain Time Seen by Provider: 09/08/21 10:30 Mode of Arrival: Ambulatory Source of Information: Patient Limitations: No Limitations Description of Symptoms (Recalled from Triage Doc. by RN): PATIENT C/O EAR PAIN, BELLY ACHE, AND RED/WATERY EYES SINCE FRIDAY HEENT Symptoms (Recalled from RN notes): Yes Resp Symptoms (Recalled from RN notes): No Skin Symptoms (Recalled from RN notes): No MS Symptoms (Recalled from RN notes): No Functional Status (Recalled from RN notes): WNL - History of Present Illness Provider Complaint: 21 yr old female presents for nasal congestion, mary kay ear pain, scratchy throat and abd cramping since thurs - Related Data Previous Rx's Medication Instructions Recorded Oxycodone HCl/Acetaminophen 1 tab PO Q4-6H PRN #12 tab 05/31/21 [Percocet 5/325mg tablet] cephALEXin [Cephalexin 500mg Tab] 500 mg PO BID 7 Days #14 tab 09/08/21 Allergies Allergy/AdvReac Type Severity Reaction Status Date / Time No Known Allergies Allergy Verified 06/14/21 09:26 - Worker's Comp Is this a Worker's Comp case?: No [facility] History - Hepatitis A Screen Attestation statement:: This patient has been screened for Hepatitis A risk factors. I have reviewed the patient's past medical history: Yes Medical History: Reports:: Heart Murmur Denies:: Cancer, Diabetes Mellitus Type 1, Diabetes Mellitus Type 2, Hypertension, Internal Pacemaker, MRSA, Seizures Other Medical History: Reports: Other. Denies: Blood Transfusion Reaction Other Surgeries: Yes: No Previous Surgery, Appendectomy, Other. 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
[2021-09-08 10:42] LABS: Adenovirus,PCR Not Detected (NotDetected); Bordetella Pertussis Not Detected (NotDetected); Chlamydophila Pneumoniae, PCR Not Detected (NotDetected); Coronavirus 19, PCR Not Detected (NotDetected); Coronavirus 229E Not Detected (NotDetected); Coronavirus NL63 Not Detected (NotDetected); Coronavirus OC43 Not Detected (NotDetected); Coronovirus HKU1,PCR Not Detected (NotDetected); Human Metapneumovirus Not Detected (NotDetected); Influenza A, PCR Not Detected (NotDetected); Influenza AH1, 2009 Not Detected (NotDetected); Influenza AH1, PCR Not Detected (NotDetected); Influenza AH3,PCR Not Detected (NotDetected); Influenza B, PCR Not Detected (NotDetected); Mycoplasma Pneumoniae, PCR Not Detected (NotDetected); Parainfluenza 1, PCR Not Detected (NotDetected); Parainfluenza 2, PCR Not Detected (NotDetected); Parainfluenza 3, PCR Not Detected (NotDetected); Parainfluenza 4, PCR Not Detected (NotDetected); Respiratory Syncytial Virus Not Detected (NotDetected); Rhinovirus/Enterovirus Not Detected (NotDetected)
[2021-09-08 10:54] VITALS: BP 118/77; PULSE 83; RESP 18; TEMP 36.6; O2SAT 98
== END 2021-09-08 10:58 | disposition home or self-care (01) ==
PROVIDERS: Emergency Provider Nurse Practitioner Family; PCP Internal Medicine Adolescent Medicine
DX: H66.001 Acute suppurative otitis media without spontaneous rupture of ear drum, right ear (principal); R05.9 Cough, unspecified; R10.9 Unspecified abdominal pain; F17.210 Nicotine dependence, cigarettes, uncomplicated
CPT/HCPCS: 87581; 87632; 87798; 99212; C9803; G0463; U0003; U0005

== ENCOUNTER 2022-05-30 11:44 | Emergency (ER) | payer OTHER, SELFPAY ==
[2022-05-30] VITALS (7 sets, daily range): BP systolic 105–125; BP diastolic 60–78; PULSE 84–105; RESP 17; TEMP 36.8–37.1; O2SAT 98–100; BMI 29.0
--- NOTE | 2022-05-30 11:50 | HMH.EDGENADL ---
Discharge Plan Disposition Patient Disposition: Home, Self-Care Prescriptions Prescriptions: New hydrocodone-acetaminophen 5-325 mg tablet 1 tab PO Q6H PRN (Reason: pain) 3 Days Qty: 12 0RF ondansetron 4 mg tablet,disintegrating 4 mg PO Q6H PRN (Reason: nausea and vomiting) 5 Days Qty: 20 0RF No Action oxycodone-acetaminophen 1 EACH tablet 1 tab PO Q4-6H PRN (Reason: Severe Pain) Qty: 12 0RF cephalexin 500 MG tablet 500 mg PO BID 7 Days Qty: 14 0RF Referrals Follow up/Referrals: Stephen Hardin MD [Primary Care Provider] - See instructions Activity Restrictions/Add. Instructions Additional Instructions/Restrictions: Your imaging revealed a 3 cm cystic structure most likely ovarian cyst surrounded by free fluid consistent with most likely hemorrhagic ovarian cyst. There is remote possibility this is infectious please keep an eye out for fever or other symptoms. Otherwise follow-up with Dr. Dowling within the next few days return to the emergency department any significant worsening of her symptoms. Clinical Impressions Clinical Impression: Hemorrhagic cyst of ovary Instructions Patient Instructions: DI for Acute Abdominal Pain Discharge ED Provider: Norma Nunez General Adult HPI General Chief complaint: Abdominal Pain Stated complaint: Abd pain radiating to buttocks, leg numbness Time Seen by Provider: 05/30/22 11:50 History of Present Illness HPI narrative: Patient is a 22-year-old female presenting with abdominal pain. She states that she is having pain primarily located in the lower aspect of her abdomen on both sides. She states she has a history of a salpingectomy bilaterally and oophorectomy on the left secondary to a large cyst and superimposed infection. She is also had an appendectomy. Still has her gallbladder. Denies any constipation or diarrhea. Denies any vaginal bleeding other than some slight spotting but she has been regular with her periods for the last several months. Denies any vaginal discharge. Denies any dysuria frequency urgency. She does state when she is trying to urinate she has pain in her rectum but currently no pressure sensation to have a bowel movement. States she had a normal soft bowel movement yesterday and she has been having a bowel movement every few days for a long time and she does not feel constipated. Denies any fevers denies a history of any STDs. She did states she had transiently some lower extremity paresthesias that has since resolved. Related Data Previous Rx's Medication Instructions Recorded oxycodone-acetaminophen 5 mg-325 1 tab PO Q4-6H PRN Severe Pain #12 05/31/21 mg tablet tabs cephalexin 500 mg tablet 500 mg PO BID 7 days #14 tabs 09/08/21 hydrocodone 5 mg-acetaminophen 325 1 tab PO Q6H PRN pain 3 days #12 05/30/22 mg tablet tabs ondansetron 4 mg disintegrating 4 mg PO Q6H PRN nausea and 05/30/22 tablet vomiting 5 days #20 tabs Allergies Allergy/AdvReac Type Severity Reaction Status Date / Time No Known Allergies Allergy Verified 06/14/21 09:26 [facility] Disclaimer: The information contained in this section may have been updated after the patient was seen, as this information can be updated by other users. Social History Smoking Status: Never smoker second hand exposure: Yes alcohol intake: never counseling provided: none substance use type: denies use current occupational status: employed Travel in the last 8 weeks: None household members: family housing: house current occupation: [employer] current occupational exposures/hazards: No caffeine: Yes ROS Obtained: Yes All systems reviewed & no additional complaints except as documented Physical Exam General General appearance: alert Respiratory Respiratory exam: Present normal lung sounds bilaterally; Absent respiratory distress Cardiovascular Cardiovascular exam: Present tachycardia Abdominal Exam Abdominal exam: Present o
--- NOTE | 2022-05-30 12:03 | CT_ITS ---
PROCEDURE INFORMATION: Exam: CT Abdomen And Pelvis With Contrast Exam date and time: 05/30/2022 12:24 PM Age: 22 years old Clinical indication: Abdominal pain; Localized; Left lower quadrant (llq); Prior surgery; Surgery date: 6+ months; Patient HX: Diffuse llq abd pain and tenderness; Additional info: Diffuse abdominal pain and tenderness TECHNIQUE: Imaging protocol: Computed tomography of the abdomen and pelvis with contrast. Radiation optimization: All CT scans at this facility use at least one of these dose optimization techniques: automated exposure control; mA and/or kV adjustment per patient size (includes targeted exams where dose is matched to clinical indication); or iterative reconstruction. Contrast material: ISOVUE; Contrast volume: 75 ml; Contrast route: IV; REPORTING DATA: Count of CT and Cardiac NM exams in prior 12 months: This patient has received 0 known CTs and 0 known cardiac nuclear medicine studies in the 12 months prior to the current study. COMPARISON: ABDPELW CT abdomen pelvis w con 06/24/2017 5:15 PM FINDINGS: Lungs: Trace left basilar airspace disease. Liver: Fatty infiltration of the liver. Gallbladder and bile ducts: Unremarkable gallbladder. Pancreas: No pancreatic mass or ductal dilatation. Spleen: Enlarged spleen measuring 13.7 cm in length. Adrenal glands: Unremarkable adrenals. Kidneys and ureters: Normal renal morphology. No hydronephrosis. Stomach and bowel: Prominent stool. Diverticula, without pericolonic inflammation. Appendix: Status post appendectomy. Intraperitoneal space: Infiltration of pelvic fat with high attenuation free fluid, indicative of proteinaceous and/or hemorrhagic content. Vasculature: Normal caliber of the abdominal aorta. Lymph nodes: Subcentimeter lymph nodes. Urinary bladder: Nondistended bladder with mild wall thickening. Reproductive: Loss of normal fascial planes in the adnexa with multifocal right-sided cystic change, including a complex 3.8 cm cyst. Bones/joints: Transitional vertebra at the lumbosacral junction. Mild scoliosis. Marginal osteophytes and Schmorl's nodes. Soft tissues: Small fat containing umbilical hernia. IMPRESSION: 1. Loss of normal fascial planes in the adnexa with multifocal right-sided cystic change, including a complex 3.8 cm cyst. 2. Infiltration of pelvic fat with high attenuation free fluid, indicative of proteinaceous and/or hemorrhagic content. 3. Additional findings as described above. THIS REPORT CONTAINS FINDINGS THAT MAY BE CRITICAL TO PATIENT CARE. The findings were verbally communicated via telephone conference with JOSE FRANCISCO Minor at 1:36 PM EDT on 05/30/2022. The findings were acknowledged and understood. JOSE FRANCISCO Minor
[2022-05-30 12:06] LABS: Microscopic, Urine URINE MICROSCOPIC (MICROSCOPIC)
[2022-05-30 12:08] LABS: Appearance,Urine CLEAR (Clear); Bilirubin,Urine Negative (Negative); Blood, Urine 2+ (Negative); Color,Urine YELLOW (Yellow); Glucose,Urine (UA) Negative (Negative); Ketones,Urine Negative (Negative); Leukocyte Esterase,Urine Negative (Negative); Nitrate,Urine Negative (Negative); PH,Urine 5.5 (5.0-8.5); Protein,Urine Negative (Negative); Specific Gravity, Urine >= 1.030 (1.005-1.030); Urobilinogen,Urine 0.2 EU/dl (0.2)
[2022-05-30 12:12] LABS: Urine Pregnancy, HCG Qual. Negative (Negative)
[2022-05-30 12:20] LABS: Basophils # 0.1 K/mm3 (0-0.2); Basophils % 0.4 % (0.1-2.0); Eosinophils # 0.1 K/mm3 (0.0-0.4); Eosinophils % 0.5 % (0.1-12.0); Hematocrit 41.6 % (37.0-47.0); Hemoglobin 13.8 g/dL (12.2-16.2); Lymphocytes # 1.2 K/mm3 (0.7-4.5); Lymphocytes % 5.5 % (10-50); Mean Corpuscular HGB Conc 33.3 g/dL (31.8-35.4); Mean Corpuscular Hemoglobin 31.3 pg (27.0-31.2); Mean Corpuscular Volume 94.2 fl (81-99); Mean Platelet Volume 8.2 fl (7.4-10.4); Monocytes # 0.7 K/mm3 (0.1-1.0); Neutrophils % 90.6 % (37.0-80.0); Platelet Count 254 K/mm3 (142-424); Red Blood Count 4.42 M/mm3 (4.20-5.40); Red Cell Distribution Width 12.9 % (11.5-17.5)
[2022-05-30 12:32] LABS: Alanine Aminotransferase 18 U/L (12-78); Albumin Level 4.7 g/dl (3.5-5.0); Albumin/Globulin Ratio 1.3 (1.1-1.8); Alkaline Phosphatase 70 U/L (38-126); Anion Gap 9.9 mEq/L (5-15); Aspartate Amino Transferase 25 U/L (14-36); Bilirubin,Total 0.5 mg/dl (0.2-1.3); Blood Urea Nitrogen 17 mg/dl (7-17); Calcium 8.9 mg/dl (8.4-10.2); Carbon Dioxide 27 mmol/L (22.0-30.0); Chloride 105 mmol/L (98-107); Creatinine Clearance Estimated 160 mL/min (50-200); Estimated Glomerular Filt Rate 103 ml/min (>60); GFR (African American) 124 ML/MIN (>60); Globulin 3.5 g/dL (1.3-3.2); Glucose 101 mg/dl (74-100); Lipase 23 U/L (23-300); Potassium 3.9 mmoL/L (3.5-5.1); Sodium 138 mmol/L (136-145); Total Protein,Serum 8.2 g/dl (6.3-8.2)
[2022-05-30 12:35] LABS: Bacteria,Urine Trace /lpf; WBC,Urine Occasional #/hpf (0-3)
[2022-05-30 12:36] LABS: MANUAL DIFFERENTIAL MANUAL DIFFERENTIAL (MANUAL DIFF)
[2022-05-30 12:58] LABS: Lymphocytes % 9 % (10-50); Monocytes % 7 % (2-9); Neutrophils % 84 % (42-76); Platelet Estimate Normal; RBC Morphology Normal; Total Cells Counted 100
--- NOTE | 2022-05-30 13:37 | US_ITS ---
PROCEDURE INFORMATION: Exam: US Pelvis, Transvaginal Exam date and time: 05/30/2022 2:00 PM Age: 22 years old Clinical indication: Pelvic pain; Prior surgery; Surgery date: 6+ months; Surgery type: Left ov removed; Additional info: Pelvic pain, fluid in pelvis on CT TECHNIQUE: Imaging protocol: Real-time transvaginal pelvic ultrasound with image documentation. Transvaginal imaging was used for better evaluation of the endometrium, adnexa, and/or cervix. COMPARISON: Abdominal/pelvic CT 05/30/2022 FINDINGS: Uterus: Uterus measures 10.0 x 5.4 x 6.4 cm. Thickened endometrium measuring 2.3 cm in maximum diameter and containing a nonspecific 5 mm irregular cyst. Cervix: Subcentimeter nabothian cyst. Right ovary/adnexa: Right ovary measures 6.0 x 3.2 x 5.3 cm. Subcentimeter follicles. Right ovarian blood flow demonstrated. Complex 3.4 cm and 1.9 cm right ovarian cysts. Left ovary/adnexa: Status post left oophorectomy. Intraperitoneal space: Complex free fluid, indicative of proteinaceous and/or hemorrhagic content, as described on previous CT report. IMPRESSION: 1. Thickened endometrium measuring 2.3 cm in maximum diameter and containing a nonspecific 5 mm irregular cyst. 2. Complex 3.4 cm and 1.9 cm right ovarian cysts. 3. Complex free fluid, indicative of proteinaceous and/or hemorrhagic content, as described on previous CT report.
--- NOTE | 2022-05-30 13:37 | PC.NURSE ---
ct results received from [facility] radiologist, relayed to ER MD, verbal order for transvaginal u/s taken from dr. ayala.
--- NOTE | 2022-05-30 14:00 | PC.NURSE ---
pt to ultrasound via wheelchair with ana
== END 2022-05-30 15:41 | disposition home or self-care (01) ==
PROVIDERS: Emergency Provider Student in an Organized Health Care Education/Training Program; PCP Internal Medicine Adolescent Medicine
DX: N83.291 Other ovarian cyst, right side (principal)
CPT/HCPCS: 74177; 76830; 80053; 81001; 81025; 83690; 85007; 85025; 96361; 96374; 96375; 96376; 99284; 99285; J2405; Q9967

== ENCOUNTER 2022-12-03 10:00 | Outpatient (RCR) | payer OTHER, SELFPAY | END 2022-12-03 10:05 | disposition home or self-care (01) | LOC: PT 10:00 | PROVIDERS: PCP Internal Medicine Adolescent Medicine; Visit Provider Nurse Practitioner Family | DX: S72.141S Displaced intertrochanteric fracture of right femur, sequela (principal); M84.471 Pathological fracture, right ankle; M79.604 Pain in right leg; M79.602 Pain in left arm; M25.551 Pain in right hip; M25.571 Pain in right ankle and joints of right foot; S42.302S Unspecified fracture of shaft of humerus, left arm, sequela; Z98.890 Other specified postprocedural states | CPT/HCPCS: 97010; 97014; 97016; 97110; 97163; 97164; 97530; G0283 ==

== ENCOUNTER 2022-12-11 10:00 | Outpatient (RCR) | payer OTHER, SELFPAY | END 2022-12-11 10:05 | disposition home health service (06) | LOC: OT 10:00 | PROVIDERS: Visit Provider Nurse Practitioner Family | DX: S42.202D Unspecified fracture of upper end of left humerus, subsequent encounter for fracture with routine healing (principal); S42.251D Displaced fracture of greater tuberosity of right humerus, subsequent encounter for fracture with routine healing | CPT/HCPCS: 97010; 97014; 97110; 97140; 97164; 97166; G0283 ==

== ENCOUNTER 2023-08-23 22:02 | Emergency (ER) | payer OTHER, SELFPAY ==
[2023-08-23 22:04] VITALS: BP 119/82; PULSE 103; RESP 20; TEMP 36.7; O2SAT 97; BMI 33.9
[2023-08-23 22:23] VITALS: BP 114/77; BP 119/82; PULSE 88; PULSE 96; RESP 16; RESP 20; TEMP 37.1; O2SAT 97; O2SAT 98; BMI 36.0
--- NOTE | 2023-08-23 23:00 | CT_ITS ---
PROCEDURE INFORMATION: Exam: CT Abdomen And Pelvis With Contrast Exam date and time: 08/23/2023 11:29 PM Age: 23 years old Clinical indication: Abdominal pain; Additional info: Sharp lower abd pain TECHNIQUE: Imaging protocol: Computed tomography of the abdomen and pelvis with contrast. Radiation optimization: All CT scans at this facility use at least one of these dose optimization techniques: automated exposure control; mA and/or kV adjustment per patient size (includes targeted exams where dose is matched to clinical indication); or iterative reconstruction. Contrast material: ISOVUE; Contrast volume: 75 ml; Contrast route: IV; COMPARISON: CT ABDOMEN PELVIS W CON 05/30/2022 12:24 PM FINDINGS: Lungs: Mild right lower lobe tree-in-bud opacities. Liver: Hepatomegaly. No mass. Gallbladder and bile ducts: Normal. No calcified stones. No ductal dilation. Pancreas: Normal. No ductal dilation. Spleen: Splenomegaly. Adrenal glands: Normal. No mass. Kidneys and ureters: Normal. No hydronephrosis. Stomach and bowel: Unremarkable. No obstruction. No mucosal thickening. Appendix: Appendectomy. Intraperitoneal space: Unremarkable. No free air. No significant fluid collection. Vasculature: Unremarkable. No abdominal aortic aneurysm. Lymph nodes: Unremarkable. No enlarged lymph nodes. Urinary bladder: Unremarkable as visualized. Reproductive: Mildly enlarged right ovary containing a 3.2 cm cyst. Bones/joints: Unremarkable. No acute fracture. Soft tissues: Unremarkable. IMPRESSION: 1. No acute intra-abdominal findings. 2. Mildly enlarged right ovary containing a 3.2 cm cyst. 3. Mild right lower lobe tree-in-bud opacities compatible with an infectious or inflammatory bronchiolitis.
--- NOTE | 2023-08-23 23:02 | ED_ITS ---
Discharge Plan Disposition Patient Disposition: Home, Self-Care Prescriptions Prescriptions: New oxycodone 5 mg tablet 5 mg PO Q8H PRN (Reason: pain) Qty: 12 0RF No Action hydrocodone-acetaminophen 5-325 mg tablet 1 tab PO Q6H PRN (Reason: pain) 3 Days Qty: 12 0RF ondansetron 4 mg tablet,disintegrating 4 mg PO Q6H PRN (Reason: nausea and vomiting) 5 Days Qty: 20 0RF Referrals Follow up/Referrals: Stephen Hardin MD [Primary Care Provider] - See instructions Activity Restrictions/Add. Instructions Additional Instructions/Restrictions: Please follow-up with your CORE MEASURES ABSTRACTOR as soon as possible. If you are unable to see your CORE MEASURES ABSTRACTOR, Dr. Davis said that she would be happy to see you on Friday in clinic. Call her office on Friday if you are unable to get into Dr. Teague. Please return to the emergency department if you develop any new or worsening symptoms or become concerned for your health. Please take Tylenol and ibuprofen every 6 hours as needed for pain. Please take Zofran as needed for nausea. Please take oxycodone as needed for pain. Clinical Impressions Clinical Impression: Pelvic pain Ovarian cyst Qualifiers: Laterality: right Qualified Code(s): N83.201 - Unspecified ovarian cyst, right side Instructions Patient Instructions: DI for Acute Abdominal Pain Discharge ED Provider: Piero Wilson Adult HPI General Chief complaint: Abdominal Pain Stated complaint: Abdominal pain,nausea Time Seen by Provider: 08/23/23 22:54 Mode of Arrival: Wheelchair Source of Information: Patient Limitations: No Limitations Description of Symptoms (Recalled from ER Triage Doc. by RN): c/o abdominal pain that started today. states pain is intermittant. rates pain as a 6/10. states 2 weeks ago had some abdominal pain and vaginal spotting. has LMP last week. no bleeding now. History of Present Illness HPI narrative: 23-year-old female with history of bilateral salpingectomy and unilateral oophorectomy on the left who presents with worsening midline lower abdominal pain. She reports that she spent almost the day on a motorcycle and then was at a tractor pole when she started having pain. The pain has been steadily worsening since then. It is located in the midline. She reports vaginal pressure but no bleeding. Last menstrual period was within the last couple of weeks. She denies any urinary symptoms. Last bowel movement was last night, she does have some history with constipation but has not been constipated recently. She denies any recent fever or illness. She reports that she has had many cysts. Reports history of of appendectomy. Related Data Previous Rx's Medication Instructions Recorded ondansetron 4 mg disintegrating 4 mg PO Q6H PRN nausea and 05/30/22 tablet vomiting 5 days #20 tabs hydrocodone 5 mg-acetaminophen 325 1 tab PO Q6H PRN pain 3 days #12 06/03/22 mg tablet tabs oxycodone 5 mg tablet 5 mg PO Q8H PRN pain #12 tabs 08/24/23 Allergies Allergy/AdvReac Type Severity Reaction Status Date / Time No Known Allergies Allergy Verified 06/03/22 16:11 [facility] Disclaimer: The information contained in this section may have been updated after the patient was seen, as this information can be updated by other users. Surgical History (Updated 06/03/22 @ 16:17 by NOELLE Saunders) History of salpingectomy History of left oophorectomy History of laparoscopic appendectomy Social History Smoking Status: Current every day smoker tobacco type: cigarettes packs per day: 1 second hand exposure: Yes alcohol intake: never counseling provided: none substance use type: denies use current occupational status: employed Travel in the last 8 weeks: None household members: family housing: house current occupation: [employer] current occupational exposures/hazards: No caffeine: Yes ROS Obtained: Yes All systems reviewed & no additional complaints except as documented Physical Exam General General appearance: alert Comment: Uncomfortable appearing Head Head exam: atraumatic and normocephalic Eye Eye exam: Present normal appearance, PERRL and EOMI ENT ENT exam: Present normal oropharynx and normal external ear exam Neck Neck exam: Present normal inspection and full ROM Chest Chest inspection: Present normal inspection and symmetric chest wall rise; Absent tenderness Respiratory Respiratory exam: Present normal lung sounds bilaterally; Absent respiratory distress Cardiovascular Cardiovascular exam: Present regular rate and normal rhythm Abdominal Exam Abdominal exam: Present soft and tenderness (Suprapubic, worse on the left); Absent distention or guarding Extremities Exam Extremities exam: Present normal inspection; Absent edema or joint swelling Back Exam Back exam: Present normal inspection; Absent tenderness Neurological Exam Neurological exam: Present alert and oriented X3; Absent motor sensory deficit Psychiatric Psychiatric exam: Present normal affect and normal mood Skin Skin exam: Present warm, dry and normal color Lymphatic Lymphatic Findings: no adenopathy Medical Decision Making Medical Records Medical records reviewed: Yes I reviewed the patient's medical records. Pietro Inquiry Pt receiving controlled substance: No Pietro was queried for this patient: No Vital Signs: 08/23/23 22:04 08/23/23 22:23 08/23/23 22:23 Temperature 98.1 F 98.7 F Temperature Source Oral Oral Pulse Rate 88 Pulse Rate [Right Brachial] 103 H 96 H Respiratory Rate 20 20 16 Blood Pressure 114/77 Blood Pressure [Right Arm] 119/82 119/82 Blood Pressure Mean [Right Arm] 94 94 Blood Pressure Source [Right Arm] Automatic Cuff Blood Pressure Position [Right Arm] Sitting 02 Sat by Pulse Oximetry 97 98 97 Oxygen Delivery Method Room Air Room Air Room Air 08/24/23 00:47 08/24/23 03:04 Temperature Temperature Source Pulse Rate 80 77 Pulse Rate [Right Brachial] Respiratory Rate 20 20 Blood Pressure 125/66 105/58 L Blood Pressure [Right Arm] Blood Pressure Mean [Right Arm] Blood Pressure Source [Right Arm] Blood Pressure Position [Right Arm] 02 Sat by Pulse Oximetry 96 97 Oxygen Delivery Method Room Air Lab Data Lab results reviewed: Yes I reviewed the patient's lab results. Lab Results 08/23/23 22:20: WBC 12.5 H, RBC 3.98 L, Hgb 12.5, Hct 39.1, MCV 98.3, MCH 31.4 H , MCHC 31.9, RDW 13.4, Plt Count 246, MPV 8.3, Neut % (Auto) 73.1, Lymph % (Auto) 21.4, [place] % (Auto) 3.9, Eos % (Auto) 1.0, Baso % (Auto) 0.6, Neut # (Auto) 9.1 H, Lymph # (Auto) 2.7, [place] # (Auto) 0.5, Eos # (Auto) 0.1, Baso # (Auto) 0.1, Sodium 137, Potassium 3.8, Chloride 107, Carbon Dioxide 24, Anion Gap 9.8, BUN 17, Creatinine 0.70, Estimated Creat Clear 185, Estimated GFR 102, Est GFR ( Amer) 123, Glucose 119 H, Calcium 9.4, Total Bilirubin 0.3, AST 33, ALT 19, Alkaline Phosphatase 65, Total Protein 8.0, Albumin 4.3, Globulin 3.7 H, Albumin/Globulin Ratio 1.2, Lipase 30, Serum HCG, Qual Negative 08/23/23 23:42: Urine Color Yellow, Urine Appearance Clear, Urine pH 8.5, Ur Specific [place] 1.015, Urine Protein Negative, Urine Glucose (UA) Negative, Urine Ketones Negative, Urine Blood Negative, Urine Nitrate Negative, Urine Bilirubin Negative, Urine Urobilinogen 0.2, Ur Leukocyte Esterase Negative, Urine RBC None, Urine WBC 3-5, Ur Squamous Epith Cells 10-20, Urine Bacteria Trace 08/23/23 22:20 08/23/23 22:20 Orders (Tests/Meds): ED MEDICATIONS Generic Name Dose Route Start Last Admin Trade Name Freq PRN Reason Stop Dose Admin Sodium Chloride 10 ml 08/23/23 23:34 08/23/23 23:36 Sodium Chloride 0.9% 10ml Syr (Rad Only) IV 09/22/23 23:33 10 ml NEEDED PRN Administration Maintain IV Site Discontinued Medications Generic Name Dose Route Start Last Admin Trade Name Freq PRN Reason Stop Dose Admin Acetaminophen 1,000 mg 08/23/23 22:59 08/23/23 23:18 Acetaminophen 500mg Tab PO 08/23/23 23:00 1,000 mg ONCE ONE Administration Iopamidol 75 ml 08/23/23 23:34 08/23/23 23:36 Iopamidol-370 (76%);100ml Bottle IV 08/23/23 23:35 75 ml ONCE ONE Administration Ketorolac Tromethamine 30 mg 08/24/23 01:04 08/24/23 01:11 Ketorolac 30mg/Ml Vial IV 08/24/23 01:05 30 mg ONCE ONE Administration Morphine Sulfate 4 mg 08/23/23 22:59 08/23/23 23:18 Morphine 4mg/Ml Syringe IV 08/23/23 23:00 4 mg ONCE ONE Administration Morphine Sulfate 4 mg 08/24/23 02:52 08/24/23 03:00 Morphine 4mg/Ml Syringe IV 08/24/23 02:53 4 mg ONCE ONE Administration Ondansetron HCl 4 mg 08/23/23 22:59 08/23/23 23:17 Ondansetron 4mg/2ml Vial IV 08/23/23 23:00 4 mg ONCE ONE Administration ORDERS Category Date Time Status CT abdomen pelvis w con Stat Cat Scan 08/23/23 23:00 Completed US transvaginal Stat Exams 08/23/23 23:49 Completed CBC w/Auto Diff [Complete Blood Count Auto Diff] Stat Lab 08/23/23 22:20 Completed CMP [Comprehensive Metabolic Panel] Stat Lab 08/23/23 22:20 Completed HCG Qualitative, Serum Stat Lab 08/23/23 22:20 Completed Lipase Stat Lab 08/23/23 22:20 Completed UA [Urinalysis and Microscopic] Stat Lab 08/23/23 23:42 Completed Medical Decision Narrative: 23-year-old female with history of bilateral salpingectomy, left oophorectomy, appendectomy, ovarian cysts presents with a few hours of worsening midline lower abdominal pain.. History was obtained interactive discussion with patient, family. On arrival, patient is [afebrile, hemodynamically stable, satting appropriately, alert, oriented x4, GCS 15], moving all extremities spontaneously. Full physical exam performed and significant for midline suprapubic and left lower quadrant abdominal pain. Differential includes but is not limited to UTI, renal lithiasis, mittelschmerz, ovarian cyst, ovarian torsion, constipation, colitis Patient was given Tylenol, morphine, Zofran for symptomatic management and correction of underlying abnormalities. Workup initiated including CBC CMP beta- hCG CT abdomen pelvis with IV contrast, transvaginal ultrasound to assess for torsion On re-evaluation, patient [remains afebrile, HD stable.] Reports she is still having pain, was given Toradol. Laboratory workup independently interpreted by me and significant for minimal leukocytosis with white count 12.5, no significant electrolyte derangement, normal renal function, negative test, urine not consistent with acute infection.. Imaging independently interpreted by me and significant for CT shows moderate right ovarian cyst, no apparent free fluid, no other emergent pathology. Transvaginal ultrasound shows normal flow to the ovary, no free fluid. See radiology read for full review of final results. On reassessment patient continues to have moderate pain. Was given morphine. Given persistent pain, interactive discussion was had with the on-call CORE MEASURES ABSTRACTOR, Dr. Davis. Given workup, at this time there is low concern for active torsion. Patient would be very high risk for any potential operative intervention as well given prior oophorectomy. On further reassessment, patient reports pain is tolerable. Interactive discussion was had with patient regarding her presentation, risks and benefits of discharge etc. After discussion, patient was felt to be appropriate for discharge with expedited outpatient follow-up with her CORE MEASURES ABSTRACTOR Dr. Teague or with Dr. Davis. Patient was discharged in stable condition with return precautions and prescription for pain and nausea control at home. Procedures Risk/Benefits of Procedure(s) Were Explained: Yes Critical Care Critical Care Time Critical Care Time: No
[2023-08-23 23:12] LABS: Chloride 107 mmol/L (98-107); Potassium 3.8 mmoL/L (3.5-5.1); Sodium 137 mmol/L (136-145)
[2023-08-23 23:14] LABS: Basophils # 0.1 K/mm3 (0-0.2); Basophils % 0.6 % (0.1-2.0); Blood Urea Nitrogen 17 mg/dl (7-17); Creatinine Clearance Estimated 185 mL/min (50-200); Eosinophils # 0.1 K/mm3 (0.0-0.4); Estimated Glomerular Filt Rate 102 ml/min (>60); GFR (African American) 123 ML/MIN (>60); HCG Qualitative, Serum Negative (Negative); Hematocrit 39.1 % (37.0-47.0); Hemoglobin 12.5 g/dL (12.2-16.2); Lymphocytes # 2.7 K/mm3 (0.7-4.5); Lymphocytes % 21.4 % (10-50); Mean Corpuscular HGB Conc 31.9 g/dL (31.8-35.4); Mean Corpuscular Hemoglobin 31.4 pg (27.0-31.2); Mean Corpuscular Volume 98.3 fl (81-99); Mean Platelet Volume 8.3 fl (7.4-10.4); Monocytes # 0.5 K/mm3 (0.1-1.0); Monocytes % 3.9 % (1.7-9.3); Neutrophils # 9.1 K/mm3 (1.8-7.8); Neutrophils % 73.1 % (37.0-80.0); Platelet Count 246 K/mm3 (142-424); Red Blood Count 3.98 M/mm3 (4.20-5.40); Red Cell Distribution Width 13.4 % (11.5-17.5); White Blood Count 12.5 K/mm3 (4.8-10.8)
[2023-08-23 23:15] LABS: Alanine Aminotransferase 19 U/L (12-78); Albumin Level 4.3 g/dl (3.5-5.0); Albumin/Globulin Ratio 1.2 (1.1-1.8); Alkaline Phosphatase 65 U/L (38-126); Anion Gap 9.8 mEq/L (5-15); Aspartate Amino Transferase 33 U/L (14-36); Bilirubin,Total 0.3 mg/dl (0.2-1.3); Calcium 9.4 mg/dl (8.4-10.2); Carbon Dioxide 24 mmol/L (22.0-30.0); Globulin 3.7 g/dL (1.3-3.2); Glucose 119 mg/dl (74-100); Lipase 30 U/L (23-300)
[2023-08-23] MEDS: ONDANSETRON 4MG/2ML VIAL 4 MG IV (23:17)
[2023-08-23] MEDS: MORPHINE 4MG/ML SYRINGE 4 MG IV (23:18)
[2023-08-23] MEDS: ACETAMINOPHEN 500MG TAB 1000 MG PO (23:18)
--- NOTE | 2023-08-23 23:23 | PC.NURSE ---
Pt transported to CT
--- NOTE | 2023-08-23 23:34 | PC.NURSE ---
Called Radiology, spoke to Sherrill. Per Dr Wilson request call in Ultrasound for possible torsine. CR
[2023-08-23] MEDS: SODIUM CHLORIDE 0.9% 10ML SYR (RAD ONLY) 10 ML IV (23:36)
[2023-08-23] MEDS: IOPAMIDOL-370 (76%);100ML BOTTLE 75 ML IV (23:36)
[2023-08-23 23:46] LABS: Microscopic, Urine URINE MICROSCOPIC (MICROSCOPIC)
[2023-08-23 23:48] LABS: Appearance,Urine CLEAR (Clear); Bilirubin,Urine Negative (Negative); Blood, Urine Negative (Negative); Color,Urine YELLOW (Yellow); Glucose,Urine (UA) Negative (Negative); Ketones,Urine Negative (Negative); Leukocyte Esterase,Urine Negative (Negative); Nitrate,Urine Negative (Negative); PH,Urine 8.5 (5.0-8.5); Protein,Urine Negative (Negative); Specific Gravity, Urine 1.015 (1.005-1.030); Urobilinogen,Urine 0.2 EU/dl (0.2)
--- NOTE | 2023-08-23 23:49 | US_ITS ---
PROCEDURE INFORMATION: Exam: US Pelvis, Transvaginal, Non-Obstetric Exam date and time: 08/24/2023 12:08 AM Age: 23 years old Clinical indication: Pelvic pain; Prior surgery; Surgery date: 6+ months; Surgery type: Left ovary and bilateral tubes removed; Additional info: Pelvic pain, possible torsion TECHNIQUE: Imaging protocol: Real-time transvaginal pelvic (non-obstetric) ultrasound with image documentation. Transvaginal imaging was used for better evaluation of the endometrium, adnexa, and/or cervix. COMPARISON: US TRANSVAGINAL 05/30/2022 2:00 PM FINDINGS: Uterus: Uterus is normal. Hyperechoic thickened fundal endometrium measuring 1.8 cm. Right ovary/adnexa: Enlarged right ovary containing a 2.8 x 3.8 x 3.6 cm complex nonvascular cyst. Normal ovarian blood flow on color Doppler. Left ovary/adnexa: Reported as surgically absent. No adnexal mass. Urinary bladder: Nonvisualized. Intraperitoneal space: No free fluid. IMPRESSION: 1. Nonspecific 3.8 cm right ovarian complex cyst. No evidence of ovarian torsion. 2. Hyperechoic thickened fundal endometrium with differential considerations to include endometrial hyperplasia, endometrial polyp, or material.
[2023-08-24] LABS: Bacteria,Urine Trace /lpf
--- NOTE | 2023-08-24 00:14 | PC.NURSE ---
Pt. went to Ultrasound dept. for TV/US.
--- NOTE | 2023-08-24 00:46 | PC.NURSE ---
Pt. returned to ED from US, warm blanket provided. Pt. resting comfortable. Awaiting test results.
[2023-08-24 00:47] VITALS: BP 125/66; PULSE 80; RESP 20; O2SAT 96
[2023-08-24] MEDS: KETOROLAC 30MG/ML VIAL 30 MG IV (01:11)
[2023-08-24] MEDS: MORPHINE 4MG/ML SYRINGE 4 MG IV (03:00)
[2023-08-24 03:04] VITALS: BP 105/58; PULSE 77; RESP 20; O2SAT 97
[2023-08-24 03:33] VITALS: BP 118/78; PULSE 82; RESP 18; TEMP 36.5; O2SAT 99
== END 2023-08-24 03:34 | disposition home or self-care (01) ==
PROVIDERS: Emergency Provider Emergency Medicine; PCP Internal Medicine Adolescent Medicine
DX: R10.2 Pelvic and perineal pain (principal); N83.201 Unspecified ovarian cyst, right side; R11.0 Nausea; F17.210 Nicotine dependence, cigarettes, uncomplicated
CPT/HCPCS: 74177; 76830; 80053; 81001; 83690; 84703; 85025; 96374; 96375; 96376; 99285; J1885; J2270; J2405; Q9967

== ENCOUNTER 2023-09-26 10:00 | Outpatient (RCR) | payer OTHER, SELFPAY ==
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
--- NOTE | 2023-08-22 14:07 | HMH.RHREAS ---
Rehab Reassessment Rehab OP Re-assessment Start: 07/25/23 10:04 Freq: Status: Active Protocol: Document 08/22/23 14:02 SETH (Rec: 08/22/23 14:07 SETH [id number]) E-signed By Juan David Corona, PT Rehab Re-assessment Subjective Subjective Pt reports much less heaviness throughout the R LE. I even ran for just a little bit the other day, I haven't done that in a long time. Objective Objective Notes R LE MMT: HIP FLEX 4+/5, ABD 4 +/5, ER 4+/5, IR 4+/5, KNEE FLEX 5/5, KNEE EXT 4+/5, ANKLE DF 5/5, ANKLE PF 5/5, ANKLE EVER 4+/5, ANKLE INV 4+/5. Circumferential Measurements: R LE total is 324.2 cm which is -1.1 cm since IE. Edema: Mild fibrotic edema throughout R LE. Assessment Progress Assessment Progressing as Expected Assessment Notes Pt has shown steady increase in R LE strength and mild decrease in overall R LE edema . She is improving her functional mobility. Skilled therapy remains indicated to aid pt return to prior level o function. Patient goals met ST/5 LT[address]/5 LT/8 Plan Plan Continue per initial POC. Frequency of Therapy 2 x/wk Duration of therapy 4 wks Time and Billing Re-Eval Time 11 Re-Eval Billing Units 1 PHYSICIAN CERTIFICATION: I certify the specified therapy services for Rita Chaudhari are required, authorized, and reviewed every 30 days.
== END 2023-09-26 10:05 | disposition home or self-care (01) ==
LOC: PT 10:00
PROVIDERS: Visit Provider Nurse Practitioner Family
DX: R60.0 Localized edema (principal); R53.1 Weakness
CPT/HCPCS: 97140; 97163; 97164

== ENCOUNTER 2023-11-14 08:06 | Emergency (ER) | payer OTHER, SELFPAY ==
[2023-11-14 08:07] VITALS: BP 124/88; PULSE 81; RESP 13; TEMP 36.6; O2SAT 97; BMI 34.7
--- NOTE | 2023-11-14 08:18 | ED_ITS ---
Discharge Plan Disposition Patient Disposition: Home, Self-Care Prescriptions Prescriptions: New amoxicillin-pot clavulanate [Augmentin] 500-125 mg tablet 1 tab PO BID Qty: 20 0RF No Action gabapentin 300 mg capsule 300 mg PO BID methocarbamol 750 mg tablet 750 mg PO BID meloxicam 15 mg tablet 15 mg PO DAILY levonorgestrel-ethinyl estrad [Aviane] 0.1-20 mg-mcg tablet 1 tab PO DAILY Qty: 84 1RF ketorolac 10 mg tablet 10 mg PO Q6H Qty: 20 0RF metronidazole 500 mg tablet 500 mg PO BID 7 Days Qty: 14 0RF oxycodone 5 mg tablet 5 mg PO Q8H PRN (Reason: pain) Qty: 12 0RF Referrals Follow up/Referrals: Stephen Hardin MD [Primary Care Provider] - See instructions Activity Restrictions/Add. Instructions Additional Instructions/Restrictions: Take the antibiotics as prescribed. You can take Tylenol and ibuprofen every 6 hours as needed to help with pain and inflammation. Use warm compresses on the area to help with inflammation. If you develop any new or worsening symptoms, such as pain with eye movement, worsening redness or swelling, fever, or if you become concerned for your health for any reason, return to the emergency department for evaluation Clinical Impressions Clinical Impression: Preseptal cellulitis of right eye Print Language Print Language: Burmese Discharge ED Provider: Francesco Bernard General Adult HPI General Chief complaint: Eye Problems Stated complaint: bump under eye, face itching and swelling Time Seen by Provider: 11/14/23 08:13 Mode of Arrival: Ambulatory Source of Information: Patient Limitations: No Limitations Description of Symptoms (Recalled from ER Triage Doc. by RN): pt presents to ED with c/o underneath of right eye swelling. pt reports yesterday she began to notice the swelling yesterday. this am she awoke with increased swelling and drainage. History of Present Illness HPI narrative: Rita Chaudhari is a 23-year-old female presents to the emergency department for complaints of swelling beneath her right eye. Patient states that she had a red spot that appeared underneath her right eyelid yesterday that she thought was a bug bite. She states that today, the swelling has worsened and it feels like she is having some burning sensation to the area. She took a Benadryl last night but did not have any significant improvement. She denies any pain with extraocular movements, blurry vision or vision changes. She states that nothing like this is ever happened before. She denies any fevers, difficulty swallowing or difficulty breathing. She states that there has been some drainage from her right eye as well. Related Data Home Medications ?Medication ?Instructions ?Recorded ?Confirmed gabapentin 300 mg capsule 300 mg PO BID 08/25/23 08/28/23 meloxicam 15 mg tablet 15 mg PO DAILY 08/25/23 08/28/23 methocarbamol 750 mg tablet 750 mg PO BID 08/25/23 08/28/23 Previous Rx's ?Medication ?Instructions ?Recorded oxycodone 5 mg tablet 5 mg PO Q8H PRN pain #12 tabs 08/24/23 levonorgestrel-ethinyl estradiol 1 tab PO DAILY #84 tabs 08/25/23 0.1 mg-20 mcg tablet (Aviane) ketorolac 10 mg tablet 10 mg PO Q6H #20 tabs 08/28/23 metronidazole 500 mg tablet 500 mg PO BID 7 days #14 tabs 08/28/23 amoxicillin 500 mg-potassium 1 tab PO BID #20 tabs 11/14/23 clavulanate 125 mg tablet (Augmentin) Allergies Allergy/AdvReac Type Severity Reaction Status Date / Time No Known Allergies Allergy Verified 08/28/23 14:51 [facility] Disclaimer: The information contained in this section may have been updated after the patient was seen, as this information can be updated by other users. Medical History Abdominal pain Heart burn Pelvic pain Surgical History History of ankle surgery History of hip surgery History of surgery on arm History of salpingectomy History of left oophorectomy History of laparoscopic appendectomy Family History Other No significant family history Social History Smoking Status: Never smoker second hand exposure: Yes alcohol intake: never counseling provided: none substance use type: denies use current occupational status: employed Travel in the last 8 weeks: None household members: family housing: house current occupation: [employer] current occupational exposures/hazards: No caffeine: Yes ROS Obtained: Yes All systems reviewed & no additional complaints except as documented Physical Exam General General appearance: alert and in no apparent distress Head Head exam: atraumatic Eye Eye exam: Present PERRL, EOMI, periorbital swelling (right sided) and other (no purulent drainage, no tenderness, no pain with EOM); Absent conjunctival injection ENT ENT exam: Present normal external ear exam Neck Neck exam: Present full ROM Chest Chest inspection: Present symmetric chest wall rise Respiratory Respiratory exam: Present normal lung sounds bilaterally; Absent respiratory distress Cardiovascular Cardiovascular exam: Present regular rate and normal rhythm Abdominal Exam Abdominal exam: Present soft; Absent tenderness or guarding Extremities Exam Extremities exam: Present normal inspection Back Exam Back exam: Present normal inspection Neurological Exam Neurological exam: Present alert and oriented X3 Psychiatric Psychiatric exam: Present normal affect Skin Skin exam: Present warm and dry Medical Decision Making Medical Records Medical records reviewed: Yes I reviewed the patient's medical records. Pietro Inquiry Pt receiving controlled substance: No Vital Signs: 11/14/23 08:07 Temperature 97.9 F Temperature Source Oral Pulse Rate [Left Radial] 81 Respiratory Rate 13 Blood Pressure [Right Arm] 124/88 Blood Pressure Mean [Right Arm] 100 02 Sat by Pulse Oximetry 97 Oxygen Delivery Method Room Air Medical Decision Narrative: Rita is a 23-year-old female present to the emergency department for complaints of 1 day of swelling to her right face and right lower eyelid. Patient states that this spot started out as a red spot underneath her right eyelid yesterday. She took Benadryl but states that the swelling has gotten worse today. She states that it has a burning sensation but is not overly painful. She notes some drainage from her right thigh since the symptoms began. She denies any vision changes, pain with extraocular movements, fever. Differential diagnosis: Preseptal cellulitis, orbital cellulitis, hordeolum, sinusitis, among others. Given the patient's physical exam, reassuring vital signs, and overall well clinical appearance, no labs or imaging studies are indicated at this time as there is low concern for orbital cellulitis given the patient's lack of pain. She has been sent home with a prescription for Augmentin and was given return precautions that included worsening pain, swelling, fever. All questions were answered. She demonstrated understanding and was in agreement with this plan. She was then discharged from the emergency department in stable condition. Critical Care Critical Care Time Critical Care Time: No
[2023-11-14 08:28] VITALS: BP 124/88; PULSE 79; RESP 16; TEMP 36.7; O2SAT 98
== END 2023-11-14 08:29 | disposition home or self-care (01) ==
PROVIDERS: Emergency Provider Student in an Organized Health Care Education/Training Program; PCP Internal Medicine Adolescent Medicine
DX: H05.011 Cellulitis of right orbit (principal)
CPT/HCPCS: 99283

== ENCOUNTER 2024-03-04 12:58 | Outpatient (CLI) | payer OTHER, SELFPAY ==
--- NOTE | 2024-03-04 13:01 | MR_ITS ---
FINAL REPORT TECHNIQUE: Multiplanar MR, without and with gadolinium enhancement CLINICAL HISTORY: POSITIONAL HEADACHE. COMPARISON: None FINDINGS: Diffusion sequences show no signal abnormality to indicate acute infarct. No mass, hemorrhage or edema is seen. Ventricles are normal. Major vascular flow voids are intact. Following contrast administration, no mass or abnormal enhancement is seen. IMPRESSION: Unremarkable MR evaluation the brain with and without contrast Reviewed, Interpreted and Dictated by Tien Nascimento MD Transcribed by Bety Garcia Authenticated and [facility]
[2024-03-04] MEDS: GADOTERIDOL INJ 20ML SYRINGE 19 ML IV (14:13)
[2024-03-04] MEDS: SODIUM CHLORIDE 0.9% 10ML SYR (RAD ONLY) 10 ML IV (14:13)
== END 2024-03-04 23:59 | disposition home or self-care (01) ==
LOC: RAD 12:59
PROVIDERS: PCP Internal Medicine Adolescent Medicine; Visit Provider Nurse Practitioner Family
DX: R51.0 Headache with orthostatic component, not elsewhere classified (principal)
CPT/HCPCS: 70553; A9576

== ENCOUNTER 2024-04-26 10:45 | Emergency (ER) | payer OTHER, SELFPAY ==
[2024-04-26] VITALS (7 sets, daily range): BP systolic 109–148; BP diastolic 61–91; PULSE 73–91; RESP 14–20; TEMP 36.7; O2SAT 96–99; BMI 34.8
--- NOTE | 2024-04-26 11:07 | CT_ITS ---
FINAL REPORT TECHNIQUE: Oral and IV contrast enhanced exam This study was performed with techniques to keep radiation doses as low as reasonably achievable, (ALARA). Individualized dose reduction techniques using automated exposure control or adjustment of mA and/or kV according to the patient's size were employed. CLINICAL HISTORY: LLQ abd pain COMPARISON: 08/24/2023 FINDINGS: CT ABDOMEN PELVIS WITH CONTRAST: Abdomen: There is a lobular nodule present in the right lower lobe measuring 15 mm in size, new since the prior CT of 09/13/2023. No evidence of pleural effusion is seen. The gallbladder is unremarkable. Liver has an unremarkable CT appearance. The spleen, pancreas and adrenal glands are unremarkable. Kidneys show no mass or obstruction. No free fluid or free air is identified. Bowel is unremarkable. Pelvis: The appendix is presumed to have been resected. Pelvic bowel loops are unremarkable. No fluid collection or adenopathy is seen. There is improvement in right ovarian cyst since the prior CT. Small uterine fibroids appear to be present as well. IMPRESSION: No acute intra-abdominal abnormality identified. Lobular nodule in the right lower lobe, 15 mm in size, new since the prior exam. Neoplasm is not excluded, recommend PET/CT for further evaluation. Reviewed, Interpreted and Dictated by Tien Nascimento MD Transcribed by Bety Garcia Authenticated and [facility]
--- NOTE | 2024-04-26 11:08 | HMH.EDGENADL ---
Discharge Plan Disposition Patient Disposition: Home, Self-Care Prescriptions Prescriptions: No Action No Known Home Medications Referrals Follow up/Referrals: Stephen Hardin MD [Primary Care Provider] - See instructions Activity Restrictions/Add. Instructions Additional Instructions/Restrictions: No evidence of any abdominal pathology to explain her symptoms today. Of note there was an incidental pulmonary nodule that was noted on CT scan that needs follow-up by her primary care doctor. As discussed your symptoms are concerning for endometriosis and please discuss this with your SHUTTLE PREPARATION SUPERVISOR doctor in follow-up. You may take over the counter pain medication as needed for your symptoms. Clinical Impressions Clinical Impression: Abdominal pain, LLQ, Incidental pulmonary nodule Stand Alone Forms Stand Alone Forms: Work/School Release Print Language Print Language: Bulgarian Discharge ED Provider: Norma Nunez General Adult HPI General Chief complaint: Vaginal Bleeding Stated complaint: abd pain, passing clots Time Seen by Provider: 04/26/24 11:02 History of Present Illness HPI narrative: 24-year-old female with a history of ovarian cysts requiring bilateral salpingectomy and left oophorectomy presents today with left lower quadrant abdominal pain and spotting. States that she is fairly certain she could not be . Denies any changes in vaginal discharge any dysuria frequency urgency. Has had very heavy painful periods for many years and is in the process of changing [facility]UTTLE PREPARATION SUPERVISOR doctors as she feels like nothing aggressive has been done to identify the cause of her symptoms. No history of kidney stones no hematuria no history of colitis or diverticulitis. Related Data Home Medications ?Medication ?Instructions ?Recorded ?Confirmed No Known Home Medications 04/26/24 04/26/24 Allergies Allergy/AdvReac Type Severity Reaction Status Date / Time No Known Allergies Allergy Verified 04/26/24 11:15 [facility] Disclaimer: The information contained in this section may have been updated after the patient was seen, as this information can be updated by other users. Medical History Abdominal pain Heart burn Pelvic pain Surgical History History of ankle surgery History of hip surgery History of surgery on arm History of salpingectomy History of left oophorectomy History of laparoscopic appendectomy Family History Other No significant family history Social History Smoking Status: Current every day smoker tobacco type: cigarettes packs per day: 1 second hand exposure: Yes alcohol intake: never counseling provided: none substance use type: denies use current occupational status: employed Travel in the last 8 weeks: None household members: family housing: house current occupation: [employer] current occupational exposures/hazards: No caffeine: Yes Have you lived/traveled outside US in past 30 days?: No Contact w/someone who lives/traveled outside US past 30 days?: No Exposure to someone with infectious disease in past 14 days?: No Do you have a fever (greater than 100.4 F or 38 C)?: No Have you tested positive for COVID-19: No Exposed to someone with COVID-19 in past 14 days?: No Do you have a sore throat?: No Do you have a cough?: No Do you have any weakness?: No Do you have any diarrhea?: No Are you experiencing any unusual bleeding?: Yes Do you have any muscle aches/pain?: No Do you have any abdominal pain?: Yes Are you experiencing loss of taste or smell?: No Other Medical History Have you received the Flu Vaccine for this season: No Have you received the Pneumonia Vaccine: No ROS Obtained: Yes All systems reviewed & no additional complaints except as documented Physical Exam General General appearance: alert Respiratory Respiratory exam: Present normal lung sounds bilaterally Cardiovascular Cardiovascular exam: Present regular rate Abdominal Exam Abdominal exam: Present soft and tenderness (Left lower quadrant tenderness palpation no rebound or guarding) Neurological Exam Neurological exam: Present alert and oriented X3 Medical Decision Making Medical Records Screening: Per USPSTF and CDC recommendations, given the prevalence of disease in our region, it is our hospital?s policy to screen for HIV and viral Hepatitis for all patients aged 18 and over and those with ongoing risk factors. Pietro Inquiry Pt receiving controlled substance: No Vital Signs: 04/26/24 10:51 04/26/24 11:00 04/26/24 11:08 Temperature 98.1 F Temperature Source Oral Pulse Rate 91 H 91 H Pulse Rate [Left] 87 Respiratory Rate 14 Blood Pressure 133/91 H 112/72 Blood Pressure [Right Arm] 133/91 H Blood Pressure Mean 85 Blood Pressure Mean [Right Arm] 105 Blood Pressure Source [Right Arm] Automatic Cuff Blood Pressure Position [Right Arm] Sitting 02 Sat by Pulse Oximetry 99 99 97 Oxygen Delivery Method Room Air Room Air Room Air 04/26/24 11:30 04/26/24 12:00 Temperature Temperature Source Pulse Rate 90 73 Pulse Rate [Left] Respiratory Rate Blood Pressure 116/73 110/70 Blood Pressure [Right Arm] Blood Pressure Mean Blood Pressure Mean [Right Arm] Blood Pressure Source [Right Arm] Blood Pressure Position [Right Arm] 02 Sat by Pulse Oximetry 96 97 Oxygen Delivery Method Room Air Room Air Lab Data Lab results reviewed: Yes I reviewed the patient's lab results. Lab Results 04/26/24 10:48: Urine Color Yellow, Urine Appearance Sl cloudy, Urine pH 5.5, Ur Specific [place] >= 1.030, Urine Protein Negative, Urine Glucose (UA) Negative, Urine Ketones Negative, Urine Blood 2+ A, Urine Nitrate Negative, Urine Bilirubin Negative, Urine Urobilinogen 0.2, Ur Leukocyte Esterase Negative, Urine RBC 10-20, Urine WBC Occasional, Ur Squamous Epith Cells 3-5, Urine Bacteria 1+ 04/26/24 11:05: WBC 8.4, RBC 4.03 L, Hgb 12.6, Hct 38.3, MCV 95.0, MCH 31.3 H, MCHC 32.9, RDW 12.3, Plt Count 250, MPV 10.3, Neut % (Auto) 68.0, Lymph % (Auto) 24.0, [place] % (Auto) 6.0, Eos % (Auto) 1.4, Baso % (Auto) 0.4, Neut # (Auto) 5.7, Lymph # (Auto) 2.0, [place] # (Auto) 0.5, Eos # (Auto) 0.1, Baso # (Auto) 0.0, Sodium 138, Potassium 4.0, Chloride 105, Carbon Dioxide 23, Anion Gap 14.0, BUN 16, Creatinine 0.70, Estimated Creat Clear 188, Estimated GFR 101, Est GFR ( Amer) 122, Glucose 92, Calcium 8.8, Total Bilirubin 0.4, AST 39 H, ALT 22, Alkaline Phosphatase 74, Total Protein 8.6 H, Albumin 4.8, Globulin 3.8 H, Albumin/Globulin Ratio 1.3, Serum HCG, Qual Negative 04/26/24 11:05 04/26/24 11:05 Orders (Tests/Meds): ED MEDICATIONS Generic Name Dose Route Start Last Admin Trade Name Freq PRN Reason Stop Dose Admin Sodium Chloride 10 ml 04/26/24 11:40 04/26/24 11:42 Sodium Chloride 0.9% 10ml Syr (Rad Only) IV 05/26/24 11:39 10 ml NEEDED PRN Administration Maintain IV Site Discontinued Medications Generic Name Dose Route Start Last Admin Trade Name Freq PRN Reason Stop Dose Admin Sodium Chloride 1,000 mls @ 999 mls/hr 04/26/24 11:15 04/26/24 11:39 Sod Chlor 0.9% 1000ml Bag IV 04/26/24 12:15 999 mls/hr .Q1H1M MARLEN Administration Iopamidol 75 ml 04/26/24 11:40 04/26/24 11:42 Iopamidol-370 (76%);100ml Bottle IV 04/26/24 11:41 75 ml ONCE ONE Administration Ketorolac Tromethamine 15 mg 04/26/24 11:07 04/26/24 11:39 Ketorolac 30mg/Ml Vial IV 04/26/24 11:08 15 mg ONCE ONE Administration Ondansetron HCl 4 mg 04/26/24 11:07 04/26/24 11:39 Ondansetron 4mg/2ml Vial IV 04/26/24 11:08 4 mg ONCE ONE Administration ORDERS Category Date Time Status CT abdomen pelvis w con Stat Cat Scan 04/26/24 11:07 Completed CBC w/Auto Diff [Complete Blood Count Auto Diff] Stat Lab 04/26/24 11:05 Completed CMP [Comprehensive Metabolic Panel] Stat Lab 04/26/24 11:05 Completed HCG Qualitative, Serum Stat Lab 04/26/24 11:05 Completed HIV Combo Stat Lab 04/26/24 11:05 Received Hepatitis C Ab Qual. W/ RFX Stat Lab 04/26/24 11:05 Received UA [Urinalysis and Microscopic] Stat Lab 04/26/24 10:48 Completed Medical Decision Narrative: 24-year-old female with above history and physical with left lower quadrant abdominal pain and spotting differential includes ectopic , endometriosis adenomyosis, ovarian cyst with rupture with localized peritonitis, diverticulitis colitis kidney stone etc. Will get a contrasted CT scan for further evaluation pain medicine nausea medicine fluids and labs have been initiated and will reassess shortly. CT scan performed which I personally interpreted which shows no intra-abdominal pathology specifically in the location of her symptoms. Radiology read is consistent with this. She does have a right lower lobe incidental pulmonary nodule that was noted and I told the patient about this and advised outpatient follow-up. She articulated to me that she understood. No large cystic structure noted in her adnexa not concerned about any surgical pathology at the moment. Her symptoms are clinically concerning for possible endometriosis or adenomyosis. She has been advised to follow-up outpatient with her SHUTTLE PREPARATION SUPERVISOR doctor and was discharged in improved and stable condition. Critical Care Critical Care Time Critical Care Time: No
[2024-04-26 11:14] LABS: Basophils % 0.4 % (0.1-2.0); Eosinophils # 0.1 K/mm3 (0.0-0.4); Eosinophils % 1.4 % (0.1-12.0); Hematocrit 38.3 % (37.0-47.0); Hemoglobin 12.6 g/dL (12.2-16.2); Mean Corpuscular HGB Conc 32.9 g/dL (31.8-35.4); Mean Corpuscular Hemoglobin 31.3 pg (27.0-31.2); Mean Platelet Volume 10.3 fl (7.4-10.4); Monocytes # 0.5 K/mm3 (0.1-1.0); Neutrophils # 5.7 K/mm3 (1.8-7.8); Platelet Count 250 K/mm3 (142-424); Red Blood Count 4.03 M/mm3 (4.20-5.40); Red Cell Distribution Width 12.3 % (11.5-17.5); White Blood Count 8.4 K/mm3 (4.8-10.8)
[2024-04-26 11:14] LABS: Appearance,Urine SL CLOUDY (Clear); Bilirubin,Urine Negative (Negative); Blood, Urine 2+ (Negative); Color,Urine YELLOW (Yellow); Glucose,Urine (UA) Negative (Negative); Ketones,Urine Negative (Negative); Leukocyte Esterase,Urine Negative (Negative); Microscopic, Urine URINE MICROSCOPIC (MICROSCOPIC); Nitrate,Urine Negative (Negative); PH,Urine 5.5 (5.0-8.5); Protein,Urine Negative (Negative); Specific Gravity, Urine >= 1.030 (1.005-1.030); Urobilinogen,Urine 0.2 EU/dl (0.2)
[2024-04-26 11:22] LABS: Albumin Level 4.8 g/dl (3.5-5.0); Chloride 105 mmol/L (98-107); Sodium 138 mmol/L (136-145)
[2024-04-26 11:25] LABS: Alanine Aminotransferase 22 U/L (12-78); Albumin/Globulin Ratio 1.3 (1.1-1.8); Alkaline Phosphatase 74 U/L (38-126); Aspartate Amino Transferase 39 U/L (14-36); Bilirubin,Total 0.4 mg/dl (0.2-1.3); Blood Urea Nitrogen 16 mg/dl (7-17); Carbon Dioxide 23 mmol/L (22.0-30.0); Creatinine Clearance Estimated 188 mL/min (50-200); Estimated Glomerular Filt Rate 101 ml/min (>60); GFR (African American) 122 ML/MIN (>60); Globulin 3.8 g/dL (1.3-3.2); Total Protein,Serum 8.6 g/dl (6.3-8.2)
[2024-04-26 11:26] LABS: Calcium 8.8 mg/dl (8.4-10.2); Glucose 92 mg/dl (74-100)
[2024-04-26 11:32] LABS: WBC,Urine Occasional #/hpf (0-3)
[2024-04-26 11:33] LABS: Bacteria,Urine 1+ /lpf
[2024-04-26 11:36] LABS: HCG Qualitative, Serum Negative (Negative)
[2024-04-26] MEDS: ONDANSETRON 4MG/2ML VIAL 4 MG IV (11:39)
[2024-04-26] MEDS: 0.9 % SODIUM CHLORIDE 1000ML 1,000 ML 999 ML IV (11:39)
[2024-04-26] MEDS: KETOROLAC 30MG/ML VIAL 15 MG IV (11:39)
[2024-04-26] MEDS: IOPAMIDOL-370 (76%);100ML BOTTLE 75 ML IV (11:42)
[2024-04-26] MEDS: SODIUM CHLORIDE 0.9% 10ML SYR (RAD ONLY) 10 ML IV (11:42)
--- NOTE | 2024-04-26 12:45 | PC.NURSE ---
ROUNDED ON THE PT. THE PT VOICES THAT SHE DOES NOT NEED ANYTHING AT THIS TIME. CALL LIGHT IS WITHIN REACH OF THE PT.
[2024-04-26 13:05] LABS: HIV Combo NEGATIVE (Negative)
[2024-04-26 13:16] LABS: Hepatitis C Ab Qual. W/ RFX NEGATIVE (Negative)
== END 2024-04-26 12:52 | disposition home or self-care (01) ==
PROVIDERS: Emergency Provider Student in an Organized Health Care Education/Training Program; PCP Internal Medicine Adolescent Medicine
DX: R10.32 Left lower quadrant pain (principal); R91.1 Solitary pulmonary nodule; F17.210 Nicotine dependence, cigarettes, uncomplicated
CPT/HCPCS: 74177; 80053; 81001; 84703; 85025; 86803; 87389; 96361; 96374; 96375; 99285; J1885; J2405; J7030; Q9967

== ENCOUNTER 2024-06-21 12:36 | Emergency (ER) | payer OTHER, SELFPAY ==
[2024-06-21 13:28] VITALS: BP 123/85; PULSE 98; RESP 17; TEMP 36.7; O2SAT 100; BMI 34.7
--- NOTE | 2024-06-21 13:45 | US_ITS ---
PROCEDURE: US TRANSVAGINAL CLINICAL INDICATION: R/O torsion, hx of rt ovary cyst, vag bleeding COMPARISON: US US TRANSVAGINAL from 05/30/[address] ABDOMEN PELVIS W CON from 05/30/[address] ABDOMEN PELVIS W CON from 08/23/[address] ABDOMEN PELVIS W CON from 04/26/2024 FINDINGS: Transvaginal sonographic images of the pelvis were obtained. UTERUS: 10.6 cm x 6.0cmx 4.8 cm with a combined endometrial thickness of 8.3mm. There is a small nabothian cyst in the cervix. LEFT OVARY: Surgically absent RIGHT OVARY: 4.2cmx 3.9 cmx2.8 cm with a volume of 24.1ml. There is a small follicle on the right ovary measuring 1.03 cm x 0.72 cm x 0.96 cm. Right ovary is seen and appears normal. Doppler flow to the right ovary is seen. There is no fluid in the cul-de-sac. IMPRESSION: 1. Anteverted uterus upper limits of normal in size. The endometrium is normal in appearance and measures 8.3 mm. 2. The left ovary is surgically absent. The right ovary appears normal and contains a small follicle approximately 1 cm in size. 3. No fluid in the cul-de-sac. 4. Results were reported to the ER doctor, Dr. Tavares. Dictated by: Aramis Teague MD 06/21/2024 14:58 Aramis Teague MD in OV 06/21/2024 14:58
--- NOTE | 2024-06-21 13:50 | ED_ITS ---
<Statement entered by Zonia Hunter DO - 06/21/24 16:18> I was consulted by the SERGIO, and we discussed the complexity of the problems being addressed. I approved the treatment and management plan for this patient's care in the emergency department, thus performing a substantive portion of the medical decision making. Zonia Hunter DO Discharge Plan Disposition Patient Disposition: Home, Self-Care Condition: Good Prescriptions Prescriptions: New cefdinir 300 mg capsule 300 mg PO BID 7 Days Qty: 14 0RF Referrals Follow up/Referrals: Aramis Teague MD [Staff Physician] - See instructions Stephen Hardin MD [Primary Care Provider] - See instructions Activity Restrictions/Add. Instructions Additional Instructions/Restrictions: Please take all your medications as prescribed, follow-up with your [employer]EL GENERAL MANAGER provider, return to the emergency department any worsening bleeding or pain. Clinical Impressions Clinical Impression: UTI (urinary tract infection), Dysmenorrhea Instructions Patient Instructions: DI for Vaginal Bleeding Print Language Print Language: Greek Discharge ED Provider: Zonia Hunter General Adult HPI General Chief complaint: Vaginal Bleeding Stated complaint: Abd. pain, blood clots Time Seen by Provider: 06/21/24 13:19 Mode of Arrival: Ambulatory Source of Information: Patient Description of Symptoms (Recalled from ER Triage Doc. by RN): pt to the ED with heavy vaginal bleeding x 3 days accompanied by generalized abd. pain and large clots that started last night. pt reports she is supposed to have a hysterectomy at the end of the month. History of Present Illness HPI narrative: 24-year-old female presents the emergency department at the request of her [employer]EL GENERAL MANAGER provider to rule out infection . For a 3-day history of lower abdominal pain/pressure and cramping as well as vaginal bleeding she describes it is passing multiple large clots . Patient is slated to have total hysterectomy performed on July 14 for what sounds like abnormal uterine bleeding/dysfunctional uterine bleeding. Patient has already had prior left oophorectomy and salpingectomy bilaterally, patient denies any fever chills chest pain shortness of breath, nausea vomiting constipation diarrhea, no urinary type symptomatology, no vaginal discharge, no risky or new sexual contact/behaviors, concerns of at this time. She has other past medical history consistent with right-sided ovarian cyst, otherwise unremarkable/no other relevant past medical history takes no other medications at home, no history of tobacco use, drug use or alcohol use. Patient is taking some Midol and Tylenol at home this morning with little to no relief of her symptomatology, initial triage vitals grossly unremarkable. Onset (ago): day(s) Related Data Previous Rx's ?Medication ?Instructions ?Recorded cefdinir 300 mg capsule 300 mg PO BID 7 days #14 caps 06/21/24 Allergies Allergy/AdvReac Type Severity Reaction Status Date / Time No Known Allergies Allergy Verified 05/10/24 15:01 [facility] Disclaimer: The information contained in this section may have been updated after the patient was seen, as this information can be updated by other users. Medical History Abdominal pain Heart burn Pelvic pain Surgical History History of ankle surgery History of hip surgery History of surgery on arm History of salpingectomy History of left oophorectomy History of laparoscopic appendectomy Family History Other No significant family history Social History Smoking Status: Current every day smoker tobacco type: cigarettes packs per day: 1 second hand exposure: Yes alcohol intake: never counseling provided: none substance use type: denies use current occupational status: employed Travel in the last 8 weeks: None household members: family housing: house current occupation: [employer] current occupational exposures/hazards: No caffeine: Yes Have you lived/traveled outside US in past 30 days?: No Contact w/someone who lives/traveled outside US past 30 days?: No Exposure to someone with infectious disease in past 14 days?: No Do you have a fever (greater than 100.4 F or 38 C)?: No Have you tested positive for COVID-19: No Exposed to someone with COVID-19 in past 14 days?: No Do you have a sore throat?: No Do you have a cough?: No Do you have any weakness?: No Do you have any diarrhea?: No Are you experiencing any unusual bleeding?: No Do you have any muscle aches/pain?: No Do you have any abdominal pain?: Yes Are you experiencing loss of taste or smell?: No Other Medical History Have you received the Flu Vaccine for this season: No Have you received the Pneumonia Vaccine: No ROS Obtained: Yes All systems reviewed & no additional complaints except as documented Physical Exam General General appearance: alert and in no apparent distress Head Head exam: atraumatic and normocephalic Eye Eye exam: Present PERRL and EOMI ENT ENT exam: Present mucous membranes moist Neck Neck exam: Present normal inspection Chest Chest inspection: Present normal inspection and symmetric chest wall rise Respiratory Respiratory exam: Present normal lung sounds bilaterally; Absent respiratory distress Cardiovascular Cardiovascular exam: Present regular rate and normal rhythm Abdominal Exam Abdominal exam: Present soft and tenderness; Absent guarding, rebound, rigidity, organomegaly, tenderness at McBurney's Point or ascites Abdominal tenderness: Present suprapubic and mild Extremities Exam Extremities exam: Present normal inspection Neurological Exam Neurological exam: Present alert and oriented X3 Psychiatric Psychiatric exam: Present normal affect Skin Skin exam: Present warm and dry Medical Decision Making Medical Records Medical records reviewed: Yes I reviewed the patient's medical records. Screening: Per USPSTF and CDC recommendations, given the prevalence of disease in our region, it is our hospital?s policy to screen for HIV and viral Hepatitis for all patients aged 18 and over and those with ongoing risk factors. Pietro Inquiry Pt receiving controlled substance: No Pietro was queried for this patient: No Vital Signs: 06/21/24 13:28 Temperature 98.1 F Temperature Source Oral Pulse Rate [Left Radial] 98 H Respiratory Rate 17 Blood Pressure [Right Arm] 123/85 Blood Pressure Mean [Right Arm] 97 Blood Pressure Source [Right Arm] Automatic Cuff Blood Pressure Position [Right Arm] Sitting 02 Sat by Pulse Oximetry 100 Oxygen Delivery Method Room Air Lab Data Lab Results 06/21/24 13:47: Urine Color Red, Urine Appearance Turbid, Urine pH 5.0, Ur Specific [place] >= 1.030, Urine Protein 3+ A, Urine Glucose (UA) Negative, Urine Ketones Trace, Urine Blood 3+ A, Urine Nitrate Positive A, Urine Bilirubin Negative, Urine Urobilinogen 2.0, Ur Leukocyte Esterase 1+ A, Urine RBC Tntc, Urine WBC 10-20, Ur Squamous Epith Cells 5-10, Urine Bacteria Trace 06/21/24 14:00: WBC 9.5, RBC 4.05 L, Hgb 12.6, Hct 38.0, MCV 93.8, MCH 31.1, MCHC 33.2, RDW 12.4, Plt Count 248, MPV 10.1, Neut % (Auto) 72.5, Lymph % (Auto) 20.0, [place] % (Auto) 5.5, Eos % (Auto) 1.5, Baso % (Auto) 0.3, Neut # (Auto) 6.9, Lymph # (Auto) 1.9, [place] # (Auto) 0.5, Eos # (Auto) 0.1, Baso # (Auto) 0.0, Sodium 140, Potassium 3.8, Chloride 104, Carbon Dioxide 28, Anion Gap 11.8, BUN 13, Creatinine 0.80, Estimated Creat Clear 164, Estimated GFR 87, Est GFR ( Amer) 105, Glucose 78, Calcium 9.4, Total Bilirubin 0.4, AST 27, ALT 18, Alkaline Phosphatase 74, Total Protein 8.5 H, Albumin 4.4, Globulin 4.1 H, Albumin/Globulin Ratio 1.1, Serum HCG, Qual Negative 06/21/24 14:00 06/21/24 14:00 Orders (Tests/Meds): ED MEDICATIONS Generic Name Dose Route Start Last Admin Trade Name Freq PRN Reason Stop Dose Admin Ceftriaxone Sodium 1 gm/ 50 mls @ 100 mls/hr 06/21/24 14:38 06/21/24 14:42 Sodium Chloride IV 06/21/24 15:07 100 mls/hr ONCE ONE Administration Discontinued Medications Generic Name Dose Route Start Last Admin Trade Name Freq PRN Reason Stop Dose Admin Ketorolac Tromethamine 15 mg 06/21/24 13:50 06/21/24 14:01 Ketorolac 30mg/Ml Vial IV 06/21/24 13:51 15 mg ONCE ONE Administration ORDERS Category Date Time Status US transvaginal Stat Exams 06/21/24 13:45 Taken Complete Blood Count Auto Diff Stat Lab 06/21/24 14:00 Completed Comprehensive Metabolic Panel Stat Lab 06/21/24 14:00 Completed HCG Qualitative, Serum Stat Lab 06/21/24 14:00 Completed Urinalysis and Microscopic Stat Lab 06/21/24 13:47 Completed Urine Culture Stat Micro 06/21/24 13:47 Received Medical Decision Narrative: 24-year-old female presents emergency department with lower abdominal pain, with some vaginal bleeding, differential diagnose include but not limited to, ovarian cyst, ovarian torsion, dysfunctional uterine bleeding, , spontaneous , dysmenorrhea, UTI. Discussed patient case with attending physician Dr. Hunter Will obtain basic laboratory studies, urinalysis, hCG qualitative, and transvaginal ultrasound, will give 15 mg IV Toradol for pain. CBC unremarkable hemoglobin hematocrit within normal limits CMP unremarkable Urinalysis is notable for 3+ proteinuria, 3+ hematuria, positive nitrites, 1+ leukocyte esterase, trace urine bacteria, 10-20 WBCs, 5-10 squamous cells, hCG qualitative is negative. Will give 1 g IV ceftriaxone for UTI. Discussed this patient's case and reviewed the imaging with Dr. Dowling with the on-call H[employer] GENERAL MANAGER who read the patient's ultrasound who is also the patient's actual OB that she follows with outpatient at approximately 2:50 PM. He notes enlarged uterus, absent left ovary, right ovary is within normal limits. I discussed that the patient has urinalysis findings for UTI, will treat patient's UTI, with p.o. ABX, patient will keep her appoint with her [employer] GENERAL [employer] provider as well as her slated hysterectomy upcoming. Discussed the results with the patient the bedside patient agreed with current discharge plan/treatment plan, patient will follow-up with [employer] GENERAL MANAGER provider as directed, and bleeding precautions will be given. Strict ED return precautions given. Patient voiced understanding. Critical Care Critical Care Time Critical Care Time: No
[2024-06-21] MEDS: KETOROLAC 30MG/ML VIAL 15 MG IV (14:01)
[2024-06-21 14:05] LABS: Microscopic, Urine URINE MICROSCOPIC (MICROSCOPIC)
--- NOTE | 2024-06-21 14:06 | PC.NURSE ---
Pt to ultrasound by wheelchair
[2024-06-21 14:10] LABS: Bilirubin,Urine Negative (Negative); Blood, Urine 3+ (Negative); Glucose,Urine (UA) Negative (Negative); Ketones,Urine TRACE (Negative); Leukocyte Esterase,Urine 1+ (Negative); Nitrate,Urine POSITIVE (Negative); Protein,Urine 3+ (Negative); Specific Gravity, Urine >= 1.030 (1.005-1.030)
[2024-06-21 14:15] LABS: Basophils % 0.3 % (0.1-2.0); Eosinophils # 0.1 K/mm3 (0.0-0.4); Eosinophils % 1.5 % (0.1-12.0); Hemoglobin 12.6 g/dL (12.2-16.2); Lymphocytes # 1.9 K/mm3 (0.7-4.5); Mean Corpuscular HGB Conc 33.2 g/dL (31.8-35.4); Mean Corpuscular Hemoglobin 31.1 pg (27.0-31.2); Mean Corpuscular Volume 93.8 fl (81-99); Mean Platelet Volume 10.1 fl (7.4-10.4); Monocytes # 0.5 K/mm3 (0.1-1.0); Monocytes % 5.5 % (1.7-9.3); Neutrophils # 6.9 K/mm3 (1.8-7.8); Neutrophils % 72.5 % (37.0-80.0); Platelet Count 248 K/mm3 (142-424); Red Blood Count 4.05 M/mm3 (4.20-5.40); Red Cell Distribution Width 12.4 % (11.5-17.5); White Blood Count 9.5 K/mm3 (4.8-10.8)
[2024-06-21 14:18] LABS: Appearance,Urine Turbid (Clear); Color,Urine Red (Yellow)
[2024-06-21 14:25] LABS: HCG Qualitative, Serum Negative (Negative)
[2024-06-21 14:26] LABS: Bacteria,Urine Trace /lpf; RBC,Urine TNTC #/hpf (0-3)
[2024-06-21 14:32] LABS: Alanine Aminotransferase 18 U/L (12-78); Albumin Level 4.4 g/dl (3.5-5.0); Albumin/Globulin Ratio 1.1 (1.1-1.8); Alkaline Phosphatase 74 U/L (38-126); Anion Gap 11.8 mEq/L (5-15); Aspartate Amino Transferase 27 U/L (14-36); Bilirubin,Total 0.4 mg/dl (0.2-1.3); Blood Urea Nitrogen 13 mg/dl (7-17); Calcium 9.4 mg/dl (8.4-10.2); Carbon Dioxide 28 mmol/L (22.0-30.0); Chloride 104 mmol/L (98-107); Creatinine Clearance Estimated 164 mL/min (50-200); Estimated Glomerular Filt Rate 87 ml/min (>60); GFR (African American) 105 ML/MIN (>60); Globulin 4.1 g/dL (1.3-3.2); Glucose 78 mg/dl (74-100); Potassium 3.8 mmoL/L (3.5-5.1); Sodium 140 mmol/L (136-145); Total Protein,Serum 8.5 g/dl (6.3-8.2)
--- NOTE | 2024-06-21 14:38 | PC.NURSE ---
1430 Pt returns from ultrasound
[2024-06-21] MEDS: CEFTRIAXONE SODIUM 1 GM in 0.9 % SODIUM CHLORIDE 50 ML IV (14:42)
[2024-06-21 15:10] VITALS: BP 122/74; PULSE 88; RESP 16; TEMP 36.8; O2SAT 99
== END 2024-06-21 15:10 | disposition home or self-care (01) ==
PROVIDERS: Physician Assistant; Emergency Provider Emergency Medicine; PCP Internal Medicine Adolescent Medicine
DX: N94.6 Dysmenorrhea, unspecified (principal); N93.9 Abnormal uterine and vaginal bleeding, unspecified; R10.30 Lower abdominal pain, unspecified; F17.210 Nicotine dependence, cigarettes, uncomplicated
CPT/HCPCS: 76830; 80053; 81001; 84703; 85025; 87086; 96365; 96374; 99283; J0696; J1885

== ENCOUNTER 2024-07-13 12:01 | Outpatient (CLI) | payer OTHER, SELFPAY ==
[2024-07-13 12:08] VITALS: BMI 34.7
[2024-07-13 12:34] LABS: Basophils % 0.3 % (0.1-2.0); Eosinophils # 0.2 Kmm3 (0.0-0.4); Eosinophils % 1.6 % (0.1-12.0); Hematocrit 37.8 % (37.0-47.0); Hemoglobin 12.5 g/dL (12.2-16.2); Lymphocytes # 1.8 K/mm3 (0.7-4.5); Lymphocytes % 18.5 % (10-50); Mean Corpuscular HGB Conc 33.1 g/dL (31.8-35.4); Mean Corpuscular Hemoglobin 30.6 pg (27.0-31.2); Mean Corpuscular Volume 92.6 fl (81-99); Mean Platelet Volume 10.1 fl (7.4-10.4); Monocytes # 0.6 K/mm3 (0.1-1.0); Monocytes % 5.9 % (1.7-9.3); Neutrophils # 7.1 K/mm3 (1.8-7.8); Neutrophils % 73.4 % (37.0-80.0); Nucleated Red Blood Cells # 0 10^3/uL; Nucleated Red Blood Cells % 0 %; Platelet Count 233 K/mm3 (142-424); Red Blood Count 4.08 M/mm3 (4.20-5.40); Red Cell Distribution Width 12.4 % (11.5-17.5); White Blood Count 9.7 K/mm3 (4.8-10.8)
[2024-07-13 12:40] LABS: Albumin Level 4.3 g/dl (3.5-5.0); Chloride 110 mmol/L (98-107); Potassium 4.2 mmoL/L (3.5-5.1); Sodium 139 mmol/L (136-145)
[2024-07-13 12:43] LABS: Alanine Aminotransferase 19 U/L (12-78); Albumin/Globulin Ratio 1.3 (1.1-1.8); Alkaline Phosphatase 66 U/L (38-126); Anion Gap 12.2 mEq/L (5-15); Aspartate Amino Transferase 26 U/L (14-36); Bilirubin,Total 0.2 mg/dl (0.2-1.3); Blood Urea Nitrogen 13 mg/dl (7-17); Calcium 9.1 mg/dl (8.4-10.2); Carbon Dioxide 21 mmol/L (22.0-30.0); Creatinine Clearance Estimated 164 mL/min (50-200); Estimated Glomerular Filt Rate 87 ml/min (>60); GFR (African American) 105 ML/MIN (>60); Globulin 3.4 g/dL (1.3-3.2); Glucose 88 mg/dl (74-100); Total Protein,Serum 7.7 g/dl (6.3-8.2)
[2024-07-13 13:39] LABS: HCG Qualitative, Serum Negative (Negative)
== END 2024-07-13 23:59 | disposition home or self-care (01) ==
LOC: PREOP 12:02
PROVIDERS: PCP Internal Medicine Adolescent Medicine; Visit Provider Nurse Practitioner Obstetrics & Gynecology
DX: Z01.812 Encounter for preprocedural laboratory examination (principal)
CPT/HCPCS: 80053; 84703; 85025; 86850

== ENCOUNTER 2024-07-14 13:28 | Observation (INO) | payer OTHER, SELFPAY ==
[2024-07-13 13:52] VITALS: BMI 34.7
[2024-07-14] VITALS (23 sets, daily range): BP systolic 105–136; BP diastolic 60–91; PULSE 65–104; RESP 16–18; TEMP 36.2–38; O2SAT 94–100
--- NOTE | 2024-07-14 08:58 | EXP.ANES.CKL ---
[facility] Disclaimer: The information contained in this section may have been updated after the patient was seen, as this information can be updated by other users. Medical History Abdominal pain Heart burn Pelvic pain Surgical History History of ankle surgery History of hip surgery History of surgery on arm History of salpingectomy History of left oophorectomy History of laparoscopic appendectomy Family History Other No significant family history Social History Smoking Status: Current every day smoker tobacco type: cigarettes packs per day: 1 second hand exposure: Yes alcohol intake: never counseling provided: none substance use type: denies use current occupational status: employed Travel in the last 8 weeks?: None household members: family housing: house current occupation: [employer] current occupational exposures/hazards: No caffeine: Yes Have you lived/traveled outside US in past 30 days?: No Contact w/someone who lives/traveled outside US past 30 days?: No Exposure to someone with infectious disease in past 14 days?: No Do you have a fever (greater than 100.4 F or 38 C)?: No Have you tested positive for COVID-19?: No Exposed to someone with COVID-19 in past 14 days?: No Do you have a sore throat?: No Do you have a cough?: No Do you have any weakness?: No Do you have any diarrhea?: No Are you experiencing any unusual bleeding?: No Do you have any muscle aches/pain?: No Do you have any abdominal pain?: No Are you experiencing loss of taste or smell?: No [facility] Anesthesia Checklist Patient Identification Patient Identification: Arm Band and Family Structural Data Admitted From: Home Planned Operative Procedure/s: [facility] Consent for Planned Operative Procedure(s) Verified: Yes Verified Documents: Surgical Consent and History and Physical NPO Status Verified Time NPO: 00:00 Additional verifications Anesthesia Reactions: No Hx Blood Transfusions: No Blood Transfusion Reaction: No Airway Assessment Mallampati Score:: Class II C-Spine Mobility Assessed: Yes TMJ Mobility Assessed: Yes Dentition: Good Dentition Neurological Assessment Level of Consciousness: Awake, Alert and Appropriate Anesthesia Plan Anesthesia Risk discussed: Yes Anesthesia Plan: Verified ASA Class: II Anesthesia Type: General
--- NOTE | 2024-07-14 09:39 | EXP.ANES.I ---
[facility] Anesthesia Record Part I Anesthesia Record I Intake, IV Amount: 900 Hydration: Adequate Estimated blood loss (mL): 5 Urine output (mL): 0 Blood Products used (#): none Blood Pressure: 135/91 SaO2: 96 Pulse Rate: 95 Airway Patency: Patent Respiratory Rate: 16 Temperature: 97.1 F Patient is:: Drowsy and Stable Stable to PACU at:: 09:35
--- NOTE | 2024-07-14 09:42 | P.HP_ITS ---
History of Present Illness *Admission Date: 07/14/24 *Reason for visit:: Laparoscopically assisted vaginal hysterectomy *History of present illness: 1. She continues to have heavy periods with severe pain. She says her last period was extremely heavy and painful. She has tried control pills as well as Nexplanon to try and regulate her periods. These have not helped with her periods. ? 2. She has had CT scans as well as ultrasounds. I suspect that she has endometriosis as well as adenomyosis. She has had a previous left salpingo- oophorectomy as well as right salpingectomy. ? 3. On examination her uterus was exquisitely tender and fixed. ? 4. She would like to go ahead with a hysterectomy. I suspect an LAVH would be a good way to do this. I would like to leave her right ovary if possible so she does not have to go through hormone replacement therapy. ? 5. I personally reviewed all her ultrasounds and CT scans. [facility] Disclaimer: The information contained in this section may have been updated after the patient was seen, as this information can be updated by other users. Medical History Abdominal pain Heart burn Pelvic pain Surgical History History of ankle surgery History of hip surgery History of surgery on arm History of salpingectomy History of left oophorectomy History of laparoscopic appendectomy Family History No significant family history Social History Smoking Status: Current every day smoker tobacco type: cigarettes packs per day: 1 second hand exposure: Yes alcohol intake: never counseling provided: none substance use type: denies use current occupational status: employed Travel in the last 8 weeks?: None household members: family housing: house current occupation: [employer] current occupational exposures/hazards: No caffeine: Yes Have you lived/traveled outside [place] in past 30 days?: No Contact w/someone who lives/traveled outside US past 30 days?: No Exposure to someone with infectious disease in past 14 days?: No Do you have a fever (greater than 100.4 F or 38 C)?: No Have you tested positive for COVID-19?: No Exposed to someone with COVID-19 in past 14 days?: No Do you have a sore throat?: No Do you have a cough?: No Do you have any weakness?: No Do you have any diarrhea?: No Are you experiencing any unusual bleeding?: No Do you have any muscle aches/pain?: No Do you have any abdominal pain?: No Are you experiencing loss of taste or smell?: No Other Medical History Have you received the Flu Vaccine for this season: No Have you received the Pneumonia Vaccine: No Review of Systems Review of Systems Review of systems:: pertinent systems reviewed and negative unless documented below Meds Home Medications and Allergies Home Medications ?Medication ?Instructions ?Recorded ?Confirmed ?Type No Known Home Medications 07/13/24 07/14/24 History New Prescriptions to Start Prescriptions: Allergies Allergy/AdvReac Type Severity Reaction Status Date / Time No Known Allergies Allergy Verified 07/13/24 11:17 Exam Data for Last 24 hours Vital signs and Labs for Last 24 Hours: Temp Pulse Resp BP Pulse Ox O2 Del Method 97.1 F L 95 H 16 135/91 H 98 Room Air 07/14/24 09:39 07/14/24 09:39 07/14/24 09:39 07/14/24 09:39 07/14/24 08:15 07/14/24 08:15 I & O for Last 24 hours: Intake & Output 07/11/24 07/12/24 07/13/24 07/14/24 11:59 11:59 11:59 11:59 Intake Total 900 / 900 Balance 900 / 900 Weight 215 lb Constitutional Constitutional: no acute distress *Routine HEENT Exam Head: Present normocephalic Eye: Present EOMI and PERRL ENT: Present mucous membranes moist *Routine Neck Exam Neck: Present supple; Absent lymphadenopathy *Routine Respiratory Exam Respiratory: Present CTA bilaterally *Routine Cardiovascular Exam Cardiovascular: Present RRR *Routine Abdominal Exam Abdominal: Present soft and normoactive bowel sounds; Absent tenderness *Routine Rectal Exam Rectal:: deferred *Routine Genitalia Exam Genitalia:: deferred *Routine Extremities Exam Extremities: Absent cyanosis, clubbing or edema *Routine Skin Exam Skin: Present warm; Absent rash *Routine Neurological Exam Neurological: Present alert and oriented X3 Assessment and Plan *Assessment and plan (1) Endometriosis: Status: Acute Category: Medical Code(s): N80.9 - Endometriosis, unspecified (2) Adenomyosis: Status: Acute Category: Medical Code(s): N80.03 - Adenomyosis of the uterus (3) Menorrhagia: Status: Acute Qualifiers: Menorrhagia type: with regular cycle Qualified Code(s): N92.0 - Excessive and frequent menstruation with regular cycle Category: Medical Code(s): N92.0 - Excessive and frequent menstruation with regular cycle (4) Dyspareunia in female: Status: Acute Category: Medical Code(s): N94.10 - Unspecified dyspareunia (5) Dysmenorrhea: Status: Acute Category: Medical Code(s): N94.6 - Dysmenorrhea, unspecified Plan She is admitted for laparoscopically assisted vaginal hysterectomy.
[2024-07-14] MEDS: CEFAZOLIN SODIUM 2 GM in 0.9 % SODIUM CHLORIDE 100 ML IV (10:45)
[2024-07-14] MEDS: ROPIVACAINE 0.5% 30ML VIAL 300 MG (11:00)
[2024-07-14] MEDS: LIDOCAINE 1% W/EPI 1:100,000 20ML VIAL 40 ML (11:38)
--- NOTE | 2024-07-14 13:28 | EXP.OP.NOTE ---
Date of procedure: 07/14/24 Pre-op Diagnosis:: Menorrhagia, dysmenorrhea, dyspareunia, adenomyosis, history of endometriosis Post-op Diagnosis:: Menorrhagia, dysmenorrhea, dyspareunia, adenomyosis, endometriosis Procedure performed:: Laparoscopic-assisted vaginal history Surgeon:: Aramis Teague MD Emergency Room Clinician(s):: Dr. Davis MECHANICAL SYSTEMS CONTROL ENGINEER:: Other (Miguel Dumontmel) Anesthesia: GETA Estimated blood loss (mL): 1,500 Clinical Note:: She is a 24-year-old lady who complains of severe pain with her periods as well as dyspareunia. She has a history of endometriosis. She complains of extremely heavy periods. On examination of her uterus it was exquisitely tender to palpate. After having discussed the risk and benefits she elected to have a laparoscopically assisted vaginal hysterectomy. Operative findings:: She had an aunt diverted slightly bulky uterus. The ovaries appeared normal. The tubes had previously been removed. She had had a previous left oophorectomy. She has had a previous appendectomy. It there were several small spots of of old endometriosis that had a powder burn appearance. Operative note:: She was taken to the operating room where general anesthesia was found be adequate. She was prepped and draped in normal sterile fashion in the semilithotomy position. A weighted speculum was placed in the vagina and the anterior lip of the cervix was grasped with a tenaculum. An acorn uterine manipulator was then placed within the cervical os. I then changed gloves. I injected 10 cc of 0.5% ropivacaine around the umbilicus and made a small incision within the umbilicus. I inserted a Veress needle into the abdominal cavity. The abdominal cavity was then insufflated with carbon dioxide gas to a pressure of 20 mmHg. I then inserted an 11 mm trocar under direct vision. I injected through and through the pubic hairline, made a small incision here and inserted a 5 mm trocar under direct vision. I identified the inferior epigastric arteries on the left side, went lateral to these and injected through and through. I then made a small incision and inserted an 11 mm trocar under direct vision. A similar 11 mm trocar was placed on the right side. The left round ligament was then grasped and cut through with harmonic scalpel. This was followed by opening up the peritoneum anteriorly to the midline. I used Harmonic scalpel on the coagulation mode. I then took down the posterior aspect of the broad ligament to the level of the uterosacral ligament. I then skeletonized the uterine arteries on the left side and placed hemoclips on these. Using the harmonic scalpel on coagulation mode adjacent to the cervix I then took down these uterine arteries. I then further freed up the bladder anteriorly and laterally on the left side. I then turned my attention to the right side where I grasped the right round ligament. I then cut through the right round ligament. I then took down the anterior peritoneum to the midline joining up with the other side. I further dissected the bladder off. The right utero-ovarian ligament was then taken down with harmonic scalpel. The posterior aspect of the right broad ligament was then taken down with harmonic scalpel. I skeletonized the uterine arteries on the right side. I applied hemoclips to the uterine arteries and staying adjacent to the cervix on the right side I took down the uterine arteries with harmonic scalpel on coagulation mode. I further freed up the bladder. We then assured hemostasis. After once again assuring hemostasis we then turned our attention to the vaginal portion of the surgery. The patient was placed in the lithotomy position and a weighted speculum was placed in the vagina. The anterior and posterior lip of the cervix were grasped with Evans tenacula. I then injected 20 cc of 1% Xylocaine with epinephrine circumferentially about the cervix. I then circumscribed the cervix. I opened up in the posterior cul-de-sac using Collins scissors. I then placed a long weighted speculum through the defect. The left uterosacral ligament was then clamped cut and suture-ligated and tagged. This was followed by the left cardinal ligament which was clamped cut and suture-ligated. I then clamped cut and suture-ligated and tagged the right uterosacral ligament. This was followed by the right cardinal ligament which was clamped cut and suture-ligated. I then grasped the anterior vaginal mucosa and using both sharp and blunt dissection dissected off the bladder. I then opened sharply into the anterior cul-de-sac. A Huntington retractor was placed through this defect. Both left and right uterine arteries were then clamped cut and suture-ligated. This freed up the uterus and it was removed through the vagina. There was bleeding on the right side and we elected to go up to see if we could address this bleeding prior to closing the cuff. We placed a glove with 2 sponges in the vagina to prevent loss of pneumoperitoneum and then changed gloves and turned our attention to the laparoscopic portion of surgery. We then addressed the bleeding on the right-hand side and used hemoclips along the right pelvic sidewall to obtain hemostasis. We then once again turned our attention to the vaginal portion of surgery. Then inserted a short weighted speculum. The posterior cuff was then closed using running 0 Vicryl suture in a locked fashion from left to right from anterior to posterior. A Peres cath was then placed in the bladder. Clear urine was seen to flow. I then changed gloves and once again insufflated the abdominal cavity with carbon dioxide gas. Hemostasis was once again assured and I rinsed the pelvis. There was a small amount of bleeding on the right side and using hemoclips I once again applied these to the right pelvic sidewall and peritoneum at each to obtain hemostasis. The pelvis was well rinsed with saline. I then sprayed Love all around the pelvis. Once again there was no evidence of any bleeding after placing the Surgicel powder and the gas was let out of the abdomen at the same time to assure hemostasis. I let the gas out of the abdomen and once again hemostasis was assured. The secondary trochars were then removed under direct vision and the sites were hemostatic. The primary trocar and camera were removed together. No bowel was seen to follow. The 11 mm trocar sites were closed deeply with [id number] 2-0 Vicryl suture followed by running subcuticular 4-0 Monocryl suture. 5 mm trocar site was closed with subcuticular 4-0 Monocryl suture. Sterile dressings were applied. The patient tolerated procedure well and was taken to the recovery room in excellent condition. All sponge, instrument and needle counts were correct. The estimated blood loss was approximately 1500 cc. Condition: stable Disposition: PACU Complications:: None
--- NOTE | 2024-07-14 13:33 | EXP.ANES.I ---
[facility] Anesthesia Record Part I Anesthesia Record I Intake, IV Amount: 2,200 Hydration: Adequate Estimated blood loss (mL): 1,500 Urine output (mL): 0 Blood Products used (#): none Blood Pressure: 136/82 SaO2: 95 Pulse Rate: 104 Airway Patency: Patent Respiratory Rate: 16 Temperature: 97.8 F Patient is:: Drowsy and Stable Stable to PACU at:: 13:30
--- NOTE | 2024-07-14 13:41 | SUR.PHASEI ---
1335- lab at getting H/H
[2024-07-14] MEDS: HYDROMORPHONE 2MG/ML SYRINGE 0.5 MG IV ×4 (13:50→14:05)
[2024-07-14 13:51] LABS: Hematocrit 34.3 % (37.0-47.0); Hemoglobin 11.4 g/dL (12.2-16.2)
[2024-07-14 14:47] LABS: Microscopic,Cath URINE MICROSCOPIC (MICROSCOPIC)
[2024-07-14 14:49] LABS: Appearance,Urine/Cath CLEAR (Clear); Bilirubin,Cath Negative (Negative); Blood, Urine/Cath 1+ (Negative); Color,Urine/Cath YELLOW (Yellow); Glucose,Urine/Cath (UA) Negative (Negative); Ketones,Urine/Cath Negative (Negative); Leukocyte Esterase,Cath Negative (Negative); Nitrate,Cath Negative (Negative); PH,Urine/Cath 5.5 (5.0-8.5); Protein,Urine/Cath Negative (Negative); Specific Gravity, Urine/Cath >= 1.030 (1.005-1.030); Urobilinogen,Cath 0.2 EU/dl (0.2)
[2024-07-14] MEDS: ACETAMINOPHEN 325MG TAB 650 MG PO ×2 (15:05→20:44)
[2024-07-14] MEDS: KETOROLAC 30MG/ML VIAL 30 MG IV ×2 (15:06→20:44)
[2024-07-14] MEDS: LACTATED RINGERS 1000ML 1,000 ML 125 ML IV (15:06)
[2024-07-14 15:17] LABS: Bacteria,Urine/Cath 3+ /lpf; Mucus,Urine/Cath 1+ /lpf
[2024-07-14] MEDS: OXYCODONE 5MG IMMEDIATE RELEASE TABLET 10 MG PO (16:06)
[2024-07-14] MEDS: CEFAZOLIN SODIUM 1 GM in 0.9 % SODIUM CHLORIDE 50 ML IV (18:10)
[2024-07-14] MEDS: HYDROMORPHONE 2MG/ML SYRINGE 1 MG IV (18:15)
[2024-07-14 19:00] LABS: Hematocrit 32.1 % (37.0-47.0); Hemoglobin 10.5 g/dL (12.2-16.2)
[2024-07-15] MEDS: ACETAMINOPHEN 325MG TAB 650 MG PO ×2 (02:42→08:57)
[2024-07-15] MEDS: KETOROLAC 30MG/ML VIAL 30 MG IV ×2 (02:42→08:58)
[2024-07-15] MEDS: LACTATED RINGERS 1000ML 1,000 ML 125 ML IV (02:42)
[2024-07-15] MEDS: CEFAZOLIN SODIUM 1 GM in 0.9 % SODIUM CHLORIDE 50 ML IV (02:42)
[2024-07-15 04:40] VITALS: BP 104/68; PULSE 66; RESP 16; TEMP 36.7; O2SAT 100
[2024-07-15 05:56] LABS: Basophils % 0.1 % (0.1-2.0); Eosinophils # 0.1 Kmm3 (0.0-0.4); Eosinophils % 0.5 % (0.1-12.0); Hematocrit 28.3 % (37.0-47.0); Lymphocytes # 2.2 K/mm3 (0.7-4.5); Lymphocytes % 14.4 % (10-50); Mean Corpuscular HGB Conc 33.2 g/dL (31.8-35.4); Mean Corpuscular Hemoglobin 31.2 pg (27.0-31.2); Mean Platelet Volume 10.3 fl (7.4-10.4); Monocytes # 0.8 K/mm3 (0.1-1.0); Monocytes % 5.5 % (1.7-9.3); Neutrophils # 11.7 K/mm3 (1.8-7.8); Nucleated Red Blood Cells # 0 10^3/uL; Nucleated Red Blood Cells % 0 %; Platelet Count 211 K/mm3 (142-424); Red Blood Count 3.01 M/mm3 (4.20-5.40); Red Cell Distribution Width 12.3 % (11.5-17.5); Red Cell Distribution Width-SD 42.1 fL; White Blood Count 14.9 K/mm3 (4.8-10.8)
[2024-07-15 06:02] LABS: Blood Urea Nitrogen 9 mg/dl (7-17); Calcium 8.3 mg/dl (8.4-10.2); Carbon Dioxide 23 mmol/L (22.0-30.0); Chloride 111 mmol/L (98-107); Creatinine Clearance Estimated 219 mL/min (50-200); Estimated Glomerular Filt Rate 121 ml/min (>60); GFR (African American) 146 ML/MIN (>60); Glucose 95 mg/dl (74-100); Sodium 135 mmol/L (136-145)
[2024-07-15 06:08] LABS: Hemoglobin 9.5 g/dL (12.2-16.2)
--- NOTE | 2024-07-15 07:45 | P.PNANES_ITS ---
[facility] Anesthesia Record Part II Anesthesia Record Part II Discharge Time: 14:00 Destination: Obstetric PACU nurse assessment reviewed?: Yes Patient Condition:: Good Anesthesia Complications:: None Swallowing reflex intact?: Yes Airway Patency: Patent Cyanosis?: No Blood Pressure: 116/74 SaO2: 98 Respiratory Rate: 16 Pulse Rate: 82 Temperature: 98 F Mental Status: Alert & Oriented Pain level:: 3 Nausea and/or vomitting:: None Intake, IV Amount: 0 Hydration: Adequate
[2024-07-15 07:46] VITALS: BP 116/74; PULSE 82; RESP 16; TEMP 36.6; O2SAT 98
[2024-07-15 08:55] VITALS: BP 104/69; PULSE 105; RESP 16; TEMP 36.8; O2SAT 99
--- NOTE | 2024-07-15 11:46 | EXP.DC.SUM ---
General Admission date:: 07/14/24 Discharge date: 07/15/24 HPI HPI HPI: 1. She continues to have heavy periods with severe pain. She says her last period was extremely heavy and painful. She has tried control pills as well as Nexplanon to try and regulate her periods. These have not helped with her periods. ? 2. She has had CT scans as well as ultrasounds. I suspect that she has endometriosis as well as adenomyosis. She has had a previous left salpingo-oophorectomy as well as right salpingectomy. ? 3. On examination her uterus was exquisitely tender and fixed. ? 4. She would like to go ahead with a hysterectomy. I suspect an LAVH would be a good way to do this. I would like to leave her right ovary if possible so she does not have to go through hormone replacement therapy. ? 5. I personally reviewed all her ultrasounds and CT scans. Hospital Course Hospital Course Hospital Course: On July 14, 2024 she underwent a laparoscopically assisted vaginal hysterectomy. She has had a previous LSO and right salpingectomy. She had a previous appendectomy. She has done well postoperatively and has remained afebrile throughout her hospitalization. She is eating and drinking and ambulating. She is voiding well. She has not had a bowel movement yet. At the time of her surgery she had above normal blood loss however her hemoglobin this morning is 9.5. The rest of her electrolytes and laboratory investigations are normal. She denies any chest pain, shortness of breath or calf tenderness. Her incisions are healing well. She will be discharged home today to follow-up with me in approximately 2 weeks time. She was given a prescription for Percocet 5/325 number 20 tablets. She will also take ibuprofen. She was given the usual instructions with respect to limiting her activity, driving and sexual activity. She was given instructions with respect to wound care. Her condition on discharge is stable and improved. Exam Data for Last 24 hours Vital signs and Labs for Last 24 Hours: Temp Pulse Resp BP Pulse Ox O2 Del Method 98.2 F 105 H 16 104/69 L 99 Room Air 07/15/24 08:55 07/15/24 08:55 07/15/24 08:55 07/15/24 08:55 07/15/24 08:55 07/15/24 10:16 Laboratory Results - last 24 hr 07/14/24 12:40: Urine Color Yellow, Urine Appearance Clear, Urine pH 5.5, Ur Specific [place] >= 1.030, Urine Protein Negative, Urine Glucose (UA) Negative, Urine Ketones Negative, Urine Blood 1+, Urine Nitrate Negative, Urine Bilirubin Negative, Urine Urobilinogen 0.2, Ur Leukocyte Esterase Negative, Urine RBC 5-10, Urine WBC 3-5, Ur Squamous Epith Cells 10-20, Urine Bacteria 3+ A 07/14/24 13:46: Hgb 11.4 L, Hct 34.3 L 07/14/24 18:54: Hgb 10.5 L, Hct 32.1 L 07/15/24 05:19: WBC 14.9 H D, RBC 3.01 L D, Hgb 9.5 L, Hct 28.3 L, MCV 94.0, MCH 31.2, MCHC 33.2, RDW 12.3, Plt Count 211, MPV 10.3, Neut % (Auto) 79.0, Lymph % (Auto) 14.4, [place] % (Auto) 5.5, Eos % (Auto) 0.5, Baso % (Auto) 0.1, Neut # (Auto) 11.7 H, Lymph # (Auto) 2.2, [place] # (Auto) 0.8, Eos # (Auto) 0.1, Baso # (Auto) 0.0, Sodium 135 L, Potassium 4.0, Chloride 111 H, Carbon Dioxide 23, Anion Gap 5.0, BUN 9 D, Creatinine 0.60 D, Estimated Creat Clear 219, Estimated GFR 121, Est GFR ( Amer) 146 D, Glucose 95, Calcium 8.3 L I & O for Last 24 hours: Intake & Output 07/12/24 07/13/24 07/14/24 07/15/24 11:59 11:59 11:59 11:59 Intake Total 900 / 900 2200 / 2200 Output Total 1060 / 1060 Balance 900 / 900 1140 / 1140 Weight 215 lb Constitutional Constitutional: no acute distress *Routine HEENT Exam Head: Present normocephalic *Routine Neck Exam Neck: Present supple and full ROM *Routine Respiratory Exam Respiratory: Present normal respiratory effort; Absent accessory muscle use *Routine Cardiovascular Exam Cardiovascular: Present RRR *Routine Abdominal Exam Abdominal: Present soft and normoactive bowel sounds; Absent tenderness Comments: Her incisions are clean and dry. Results Data Completed and Pending Labs on day of discharge: Labs from last 24 hours 07/15/24 07/14/24 07/14/24 05:19 18:54 13:46 WBC 14.9 H D RBC 3.01 L D Hgb 9.5 L 10.5 L 11.4 L Hct 28.3 L 32.1 L 34.3 L MCV 94.0 MCH 31.2 MCHC 33.2 RDW 12.3 Plt Count 211 MPV 10.3 Neut % (Auto) 79.0 Lymph % (Auto) 14.4 [place] % (Auto) 5.5 Eos % (Auto) 0.5 Baso % (Auto) 0.1 Neut # (Auto) 11.7 H Lymph # (Auto) 2.2 [place] # (Auto) 0.8 Eos # (Auto) 0.1 Baso # (Auto) 0.0 Sodium 135 L Potassium 4.0 Chloride 111 H Carbon Dioxide 23 Anion Gap 5.0 BUN 9 D Creatinine 0.60 D Estimated Creat Clear 219 Estimated GFR 121 Est GFR ( Amer) 146 D Glucose 95 Calcium 8.3 L Urine Color Urine Appearance Urine pH Ur Specific [place] Urine Protein Urine Glucose (UA) Urine Ketones Urine Blood Urine Nitrate Urine Bilirubin Urine Urobilinogen Ur Leukocyte Esterase Urine RBC Urine WBC Ur Squamous Epith Cells Urine Bacteria 07/14/24 12:40 WBC RBC Hgb Hct MCV MCH MCHC RDW Plt Count MPV Neut % (Auto) Lymph % (Auto) [place] % (Auto) Eos % (Auto) Baso % (Auto) Neut # (Auto) Lymph # (Auto) [place] # (Auto) Eos # (Auto) Baso # (Auto) Sodium Potassium Chloride Carbon Dioxide Anion Gap BUN Creatinine Estimated Creat Clear Estimated GFR Est GFR ( Amer) Glucose Calcium Urine Color Yellow Urine Appearance Clear Urine pH 5.5 Ur Specific [place] >= 1.030 Urine Protein Negative Urine Glucose (UA) Negative Urine Ketones Negative Urine Blood 1+ Urine Nitrate Negative Urine Bilirubin Negative Urine Urobilinogen 0.2 Ur Leukocyte Esterase Negative Urine RBC 5-10 Urine WBC 3-5 Ur Squamous Epith Cells 10-20 Urine Bacteria 3+ A DS: Diagnosis Discharge Diagnosis (1) Endometriosis: Status: Acute Code(s): N80.9 - Endometriosis, unspecified (2) Adenomyosis: Status: Acute Code(s): N80.03 - Adenomyosis of the uterus (3) Menorrhagia: Status: Acute Code(s): N92.0 - Excessive and frequent menstruation with regular cycle Qualifiers: Menorrhagia type: with regular cycle Qualified Code(s): N92.0 - Excessive and frequent menstruation with regular cycle (4) Dyspareunia in female: Status: Acute Code(s): N94.10 - Unspecified dyspareunia (5) Dysmenorrhea: Status: Acute Code(s): N94.6 - Dysmenorrhea, unspecified Meds Home Medications and Allergies Home Medications ?Medication ?Instructions ?Recorded ?Confirmed ?Type oxycodone-acetaminophen 5 mg-325 1 tab PO Q6H PRN pain #20 tabs 07/15/24 Rx mg tablet New Prescriptions to Start Prescriptions: oxycodone-acetaminophen Aramis Teague Allergies Allergy/AdvReac Type Severity Reaction Status Date / Time No Known Allergies Allergy Verified 07/13/24 11:17 Discharge Plan Disposition Patient Disposition: Home, Self-Care Follow up Plan Follow up with: Aramis Teague MD [Staff Physician] - 07/28/24 10:45 am Prescriptions/Medication Reconciliation: New oxycodone-acetaminophen 5-325 mg tablet 1 tab PO Q6H PRN (Reason: pain) Qty: 20 0RF Problem Reconciliation Problems Reviewed?: Yes Patient Discharge Instructions ACTIVITY: No heavy lifting DIET: continue same diet Patient Instructions: How to Care for a Surgical Wound, DI for Hysterectomy, DI for Postoperative Pain Print Language: Upper Sorbian Providers Primary Care Provider: Stephen Hardin Admit Provider: Aramis Teague Attending Provider: Aramis Teague
--- NOTE | 2024-07-15 12:53 | PC.NURSE ---
Discharge education provided, questions encouraged and answered. Pt v/u.
== END 2024-07-15 13:00 | disposition home or self-care (01) ==
LOC: OB 13:28
PROVIDERS: Nurse Anesthetist, Certified Registered; Admitting Provider Nurse Practitioner Obstetrics & Gynecology; PCP Internal Medicine Adolescent Medicine; Visit Provider Nurse Practitioner Obstetrics & Gynecology
PROC: 0UT9FZZ Resection of Uterus, Via Natural or Artificial Opening With Percutaneous Endoscopic Assistance (ICD-10-PCS; CPT 58550; principal; 2024-07-14 09:45)
DX: N80.03 Adenomyosis of the uterus (principal); N92.0 Excessive and frequent menstruation with regular cycle; N94.6 Dysmenorrhea, unspecified; F17.210 Nicotine dependence, cigarettes, uncomplicated; N94.10 Unspecified dyspareunia; N80.9 Endometriosis, unspecified
CPT/HCPCS: 58550; 36415; 80048; 81001; 85014; 85018; 85025; 87086; 96374; J3490; G0378; J0690; J1100; J1171; J1885; J2250; J3010; J7120